=== PATIENT | female | born 1990 | race Caucasian/White ===

== ENCOUNTER 2018-03-16 10:16 | Emergency (ER) | payer OTHER, MEDICAID, SELFPAY ==
[2018-03-16 10:45] VITALS: BP 128/81; PULSE 88; RESP 20; TEMP 36.7; O2SAT 100
--- NOTE | 2018-03-16 12:09 | ED.ABDPAIN ---
HPI - Abdominal Pain <TEE Burroughs - Last Filed: 03/16/18 22:33> General Chief Complaint: Abdominal Pain Stated Complaint: throwing up this morning Time Seen by Provider: 03/16/18 12:08 History of Present Illness HPI narrative: 27-year-old female with history of ovarian cancer with right ovary removed here for pain to the left lower quadrant over the past few days. She states that she has also had nausea and vomiting. She reports that she completed chemo therapy. She reports she has had a hard time keeping down her pain medications and nausea medications. She denies having any fevers. No flank pain and no urinary symptoms. She denies any stressors or relievers of her pain. She states that she has not been having any vaginal bleeding. She does state that she has had whitish discharge. Related Data Home Medications Medication Instructions Recorded Confirmed multivitamin [Multiple Vitamins] 1 tab PO QDAY #0 09/29/17 03/21/18 vitamin B complex [B 1 tab PO QDAY #0 09/29/17 03/21/18 Complex-Vitamin B12] escitalopram oxalate [Lexapro] 5 mg PO QPM 03/16/18 03/21/18 lamotrigine [Lamictal] 200 mg PO QPM 03/16/18 03/21/18 paroxetine HCl [Paxil] 20 mg PO QHS 03/16/18 03/21/18 promethazine [Phenergan] 25 mg RC Q6HP PRN 03/16/18 03/21/18 Previous Rx's Medication Instructions Recorded omeprazole 20 mg PO QDAY #30 tab 12/31/17 norethindrone ac-eth estradiol 1 tab PO Q DAY #3 pac 02/18/18 [Loestrin 1.5/30 (21)] ondansetron 4 mg disintegrating 8 mg SUBLINGUAL Q6H PRN #60 tab 03/21/18 tablet oxycodone 5 mg capsule 5 mg PO Q8H PRN #90 cap 03/21/18 promethazine 12.5 mg tablet 12.5 mg PO Q6HP PRN #30 tab 03/21/18 cephalexin 500 mg tablet 500 mg PO Q12H 7 Days #14 tab 03/23/18 lorazepam 0.5 mg tablet 0.5 mg PO Q8HP PRN #50 tab 03/23/18 Allergies Allergy/AdvReac Type Severity Reaction Status Date / Time ketorolac [From Toradol] Allergy Intermediate Verified 03/21/18 14:15 aripiprazole [From ABILIFY] Allergy Mild MOOD SWINGS Verified 03/21/18 14:15 ethinyl estradiol Allergy Mild ITCHING Verified 03/21/18 14:15 [From NUVARING] etonogestrel [From NUVARING] Allergy Mild ITCHING Verified 03/21/18 14:15 hydrocodone [HYDROCODONE] Allergy Mild ITCHING Verified 03/21/18 14:15 tramadol [TRAMADOL] Allergy Mild ITCHING Verified 03/21/18 14:15 Review of Systems <TEE Burroughs - Last Filed: 03/16/18 22:33> Constitutional Reports system reviewed and no additional complaints, except as docu Eyes Reports system reviewed and no additional complaints, except as docu ENT Ears, Nose, Mouth, and Throat: Reports system reviewed and no additional complaints, except as docu Cardiovascular Denies chest pain and Denies dyspnea Respiratory Denies dyspnea Gastrointestinal Gastrointestinal: Reports abdominal pain Genitourinary Denies urinary frequency and Denies flank pain Musculoskeletal Reports system reviewed and no additional complaints, except as docu Integumentary/Breasts Reports system reviewed and no additional complaints, except as docu Neurologic Reports system reviewed and no additional complaints, except as docu Exam <TEE Burroughs - Last Filed: 03/16/18 22:33> Const General: well developed and No acute distress Orientation: alert, awake and oriented x3 HENMT Head: normocephalic and atraumatic Eyes Pupils: PERRL EOM: EOM intact bilaterally Resp Effort & Inspection: normal respiratory effort and no use of accessory muscles Auscultation: clear to auscultation bilaterally Cardio Rate: regular rate Rhythm: regular rhythm Heart Sounds: S1 normal, S2 normal, no click, no gallops, no murmurs and no rubs GI Inspection: non-distended Palpation: soft, No hepatomegaly, No hernia, No mass, No pulsatile mass and tender Auscultation: normal bowel sounds General: No CVA tenderness External Female Exam: external appearance normal and normal appearance of the urethra Speculum Exam - Vagina: normal appearance of the vagina, normal vaginal discharge, No vaginal bleeding and nontender Speculum Exam - Cervix: normal appearance of the cervix, normal vervical discharge and nontender Bimanual Exam- Vagina & Uterus: normal bimanual exam, normal vaginal palpation and No cervical tenderness Bimanual Exam- Adnexa, other: normal adnexae OB/External & Speculum: No vaginal bleeding Skin General: dry skin and warm Course <TEE Burroughs - Last Filed: 03/16/18 22:33> Orders Ordered: Discontinued Medications Hydromorphone HCl (Dilaudid) 0.5 mg IV NOW ONE Stop: 03/16/18 14:55 Last Admin: 03/16/18 15:00 Dose: 0.5 mg Hydromorphone HCl (Dilaudid) 0.5 mg IV NOW ONE Stop: 03/16/18 16:11 Last Admin: 03/16/18 16:18 Dose: 0.5 mg Hydromorphone HCl (Dilaudid) 0.5 mg IV NOW ONE Stop: 03/16/18 17:19 Last Admin: 03/16/18 17:38 Dose: 0.5 mg Sodium Chloride (Normal Saline 0.9%) 1,000 mls @ 1,000 mls/hr IV BOLUS ONE Stop: 03/16/18 14:03 Last Infusion: 03/16/18 15:56 Dose: 0 mls/hr Admin: 03/16/18 14:38 Dose: 1,000 mls/hr Morphine Sulfate (Morphine) 4 mg IV NOW ONE Stop: 03/16/18 13:05 Last Admin: 03/16/18 14:01 Dose: 4 mg Ondansetron HCl (Zofran) 4 mg IV NOW ONE Stop: 03/16/18 13:05 Last Admin: 03/16/18 13:58 Dose: 4 mg Ondansetron HCl (Zofran) 4 mg IV NOW ONE Stop: 03/16/18 14:55 Last Admin: 03/16/18 15:00 Dose: 4 mg Last Vital Signs Temp 97.9 F 03/16/18 13:22 Pulse 77 03/16/18 17:47 Resp 18 03/16/18 17:47 BP 128/82 H 03/16/18 17:47 Pulse Ox 100 03/16/18 17:47 <Gabriele Verde MD - Last Filed: 03/25/18 04:59> Orders Ordered: Discontinued Medications Hydromorphone HCl (Dilaudid) 0.5 mg IV NOW ONE Stop: 03/16/18 14:55 Last Admin: 03/16/18 15:00 Dose: 0.5 mg Hydromorphone HCl (Dilaudid) 0.5 mg IV NOW ONE Stop: 03/16/18 16:11 Last Admin: 03/16/18 16:18 Dose: 0.5 mg Hydromorphone HCl (Dilaudid) 0.5 mg IV NOW ONE Stop: 03/16/18 17:19 Last Admin: 03/16/18 17:38 Dose: 0.5 mg Sodium Chloride (Normal Saline 0.9%) 1,000 mls @ 1,000 mls/hr IV BOLUS ONE Stop: 03/16/18 14:03 Last Infusion: 03/16/18 15:56 Dose: 0 mls/hr Admin: 03/16/18 14:38 Dose: 1,000 mls/hr Morphine Sulfate (Morphine) 4 mg IV NOW ONE Stop: 03/16/18 13:05 Last Admin: 03/16/18 14:01 Dose: 4 mg Ondansetron HCl (Zofran) 4 mg IV NOW ONE Stop: 03/16/18 13:05 Last Admin: 03/16/18 13:58 Dose: 4 mg Ondansetron HCl (Zofran) 4 mg IV NOW ONE Stop: 03/16/18 14:55 Last Admin: 03/16/18 15:00 Dose: 4 mg Last Vital Signs Temp 97.9 F 03/16/18 13:22 Pulse 77 03/16/18 17:47 Resp 18 03/16/18 17:47 BP 128/82 H 03/16/18 17:47 Pulse Ox 100 03/16/18 17:47 MDM - Abdominal Pain <TEE Burroughs - Last Filed: 03/16/18 22:33> MDM Narrative Medical decision making narrative: CBC and Chem panel were obtained were unremarkable. Lipase was negative. Urinalysis was negative for UTI and . Abdominal CT was obtained and shows findings consistent with a ruptured left ovarian cyst that could be consistent with her pain. Wet prep was obtained and was unremarkable. GC chlamydia is pending vaginal cultures pending. Small amount of Percocet as prescribed for pain. And Zofran for nausea. She is encouraged to follow up with OBGYN. Return emergency room for any worsening symptoms Lab Data Result diagrams: 03/16/18 13:20 03/16/18 13:20 Lab Results 03/16/18 03/16/18 03/16/18 Range/Units 13:20 13:20 15:15 WBC 8.0 (4.5-11.0) X10^3/uL RBC 4.39 (4.0-5.2) X10^6/uL Hgb 12.6 (12.0-16.0) g/dL Hct 37.2 (36-46) % MCV 84.6 (80-100) fL MCH 28.6 (26-34) PG MCHC 33.8 (30-36) % RDW 13.4 (11.6-14.8) % Plt Count 323 (150-400) X10^3/uL Neut % (Auto) 51.2 (50-75) % Lymph % (Auto) 38.0 (25-40) % Coffee % (Auto) 9.2 (3-14) % Eos % (Auto) 1.2 L (2-4) % Baso % (Auto) 0.4 (0-2) % Neut # (Auto) 4100 (8590-9933) /uL Sodium 140 (137-145) mmol/L Potassium 4.3 (3.4-5.1) mmol/L Chloride 101.0 (98-107) mmol/L Carbon Dioxide 25.0 (22-32) mmol/L BUN 18.0 H (7-17) mg/dL Creatinine 0.60 (0.52-1.04) mg/dL Estimated GFR > 60.0 (>60) mL/min BUN/Creatinine Ratio 30.0 H (6-22) Glucose 90 (70-100) mg/dL Calcium 9.6 (8.4-10.2) mg/dL Total Bilirubin 0.3 (0.2-1.3) mg/dL AST 27 (14-36) IU/L ALT 29 (9-52) IU/L Alkaline Phosphatase 74 (38-126) U/L Total Protein 8.1 (6.3-8.2) g/dL Albumin 4.8 (3.5-5.0) g/dL Globulin 3.3 (1.7-4.1) g/dL Albumin/Globulin Ratio 1.5 (1.0-2.8) Lipase 77 (23-300) U/L C.trachomatis RNA (TMA) Not detected (Not detected) N.gonorrhoeae RNA (TMA) Not detected (Not detected) Imaging Data CT scan - abdomen: Radiologist's impression: PROCEDURE: CT ABDOMEN PELVIS W CON INDICATIONS: Left lower quadrant/pelvic pain TECHNIQUE: After the administration of oral and intravenous contrast, 5 mm thick sections acquired from the diaphragms to the symphysis. 5 mm thick coronal and sagittal reformats were performed. For radiation dose reduction, the following was used: automated exposure control, adjustment of mA and/or kV according to patient size. COMPARISON: [facility], CT, ABDOMEN/PELVIS WITH CONTRAST, 08/24/2017, 21:31. [facility], CT, ABDOMEN/PELVIS WITH CONTRAST, 07/19/2017, 20:15. [facility], CT, ABDOMEN/PELVIS WITH CONTRAST, 06/16/2017, 20:34. FINDINGS: Image quality: Excellent. ABDOMEN: Lung bases: Lung bases are clear. Heart size is normal. Solid organs: Liver is normal in size and enhancement. Gallbladder contains gallstones.. Biliary system is non-dilated. Pancreas enhances normally. Spleen is normal in size and enhancement. No adrenal nodules. Kidneys are normal in size and enhancement, without hydronephrosis. Peritoneum and bowel: Stomach, small bowel, and colon loops are normal in caliber and wall thickness. No free fluid or air. No loculated fluid collections are identified. The appendix is well-visualized and normal. Moderate residual stool is seen within the proximal colon. Nodes and vessels: No retroperitoneal or mesenteric adenopathy. Aorta and inferior vena cava are normal in caliber. Miscellaneous: There is a small fat containing periumbilical hernia. PELVIS: Genitourinary: Bladder wall thickness is normal. The uterus and ovaries are not enlarged. There is a peripherally enhancing 1.7 cm left ovarian cyst, which may represent a collapsing hemorrhagic ovarian cyst, in the correct clinical setting. Miscellaneous: No inguinal hernias or adenopathy. No free fluid or loculated fluid collection is evident. Bones: No suspicious bony lesions. No vertebral body compression fractures. Age-appropriate degenerative changes of the spine are present. IMPRESSION: 1. No definite acute abnormality within the abdomen or pelvis. 2. Possible collapsing left ovarian cyst may be a source for the patient's pain. 3. Normal appendix. 4. Moderate residual stool within the colon may represent constipation. No bowel obstruction. 5. Cholelithiasis. <Gabriele Verde MD - Last Filed: 03/25/18 04:59> Lab Data Lab Results 03/16/18 03/16/18 03/16/18 Range/Units 13:20 13:20 15:15 WBC 8.0 (4.5-11.0) X10^3/uL RBC 4.39 (4.0-5.2) X10^6/uL Hgb 12.6 (12.0-16.0) g/dL Hct 37.2 (36-46) % MCV 84.6 (80-100) fL MCH 28.6 (26-34) PG MCHC 33.8 (30-36) % RDW 13.4 (11.6-14.8) % Plt Count 323 (150-400) X10^3/uL Neut % (Auto) 51.2 (50-75) % Lymph % (Auto) 38.0 (25-40) % Coffee % (Auto) 9.2 (3-14) % Eos % (Auto) 1.2 L (2-4) % Baso % (Auto) 0.4 (0-2) % Neut # (Auto) 4100 (5729-9756) /uL Sodium 140 (137-145) mmol/L Potassium 4.3 (3.4-5.1) mmol/L Chloride 101.0 (98-107) mmol/L Carbon Dioxide 25.0 (22-32) mmol/L BUN 18.0 H (7-17) mg/dL Creatinine 0.60 (0.52-1.04) mg/dL Estimated GFR > 60.0 (>60) mL/min BUN/Creatinine Ratio 30.0 H (6-22) Glucose 90 (70-100) mg/dL Calcium 9.6 (8.4-10.2) mg/dL Total Bilirubin 0.3 (0.2-1.3) mg/dL AST 27 (14-36) IU/L ALT 29 (9-52) IU/L Alkaline Phosphatase 74 (38-126) U/L Total Protein 8.1 (6.3-8.2) g/dL Albumin 4.8 (3.5-5.0) g/dL Globulin 3.3 (1.7-4.1) g/dL Albumin/Globulin Ratio 1.5 (1.0-2.8) Lipase 77 (23-300) U/L C.trachomatis RNA (TMA) Not detected (Not detected) N.gonorrhoeae RNA (TMA) Not detected (Not detected) <Gabriele Verde MD - Last Filed: 03/25/18 04:59> Attestation: The PA/HOP SEPARATOR functioned independently for the care of this pt, I was available, but not asked to participate in care. I am unable to determine appropriateness of management without personally examining the pt. Discharge Plan Departure Patient Disposition: Home, Self-Care Clinical Impression: Cyst of left ovary Discharge Date/Time: 03/16/18 18:02 Interventions: ED Discharge Assessment Last Done: 03/16/18 18:01 Instructions: DI for Ovarian Cyst Activity Restrictions/Additional Instructions: Laboratory results were unremarkable today. CT of the abdomen shows that you had an ovarian cyst to the left side which could be causing your discomfort. Small amount of Percocet as prescribed for pain. Zofran as prescribed for nausea use as directed. Slowly advance diet as tolerated. 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 Return emergency room for worsening symptoms Prescriptions: No Action multivitamin [Multiple Vitamins] 1 EACH tablet 1 tab PO QDAY Qty: 0 RF: 0 vitamin B complex [B Complex-Vitamin B12] 1 EACH tablet 1 tab PO QDAY Qty: 0 RF: 0 omeprazole 20 MG tablet,delayed release (DR/EC) 20 mg PO QDAY Qty: 30 RF: 3 norethindrone ac-eth estradiol [Loestrin 1.5/30 (21)] 1.5 MG/30 MCG tablet 1 tab PO Q DAY Qty: 3 RF: 4 lorazepam [Ativan] 0.5 mg tablet 0.5 mg PO Q8HP PRN (Reason: Anxiety) Qty: 50 RF: 0 cephalexin 500 mg tablet 500 mg PO Q12H 7 Days Qty: 14 RF: 0 promethazine 12.5 mg tablet 12.5 mg PO Q6HP PRN (Reason: Nausea And Vomiting) Qty: 30 RF: 2 ondansetron 4 mg tablet,disintegrating 8 mg Sublingual Q6H PRN (Reason: Nausea) Qty: 60 RF: 2 oxycodone 5 mg capsule 5 mg PO Q8H PRN (Reason: pain) Qty: 90 RF: 0 lamotrigine [Lamictal] 200 MG tablet 200 mg PO QPM RF: 0 escitalopram oxalate [Lexapro] 10 MG tablet 5 mg PO QPM RF: 0 promethazine [Phenergan] 25 MG suppository 25 mg RC Q6HP PRN (Reason: Nausea And Vomiting) RF: 0 paroxetine HCl [Paxil] 20 MG tablet 20 mg PO QHS RF: 0 Referrals: Justa Hamilton MD [Primary Care Provider] -
--- NOTE | 2018-03-16 13:06 | DI.CT.S_ITS ---
PROCEDURE: CT ABDOMEN PELVIS W CON INDICATIONS: Left lower quadrant/pelvic pain TECHNIQUE: After the administration of oral and intravenous contrast, 5 mm thick sections acquired from the diaphragms to the symphysis. 5 mm thick coronal and sagittal reformats were performed. For radiation dose reduction, the following was used: automated exposure control, adjustment of mA and/or kV according to patient size. COMPARISON: [facility], CT, ABDOMEN/PELVIS WITH CONTRAST, 08/24/2017, 21:31. [facility], CT, ABDOMEN/PELVIS WITH CONTRAST, 07/19/2017, 20:15. [facility], CT, ABDOMEN/PELVIS WITH CONTRAST, 06/16/2017, 20:34. FINDINGS: Image quality: Excellent. ABDOMEN: Lung bases: Lung bases are clear. Heart size is normal. Solid organs: Liver is normal in size and enhancement. Gallbladder contains gallstones.. Biliary system is non-dilated. Pancreas enhances normally. Spleen is normal in size and enhancement. No adrenal nodules. Kidneys are normal in size and enhancement, without hydronephrosis. Peritoneum and bowel: Stomach, small bowel, and colon loops are normal in caliber and wall thickness. No free fluid or air. No loculated fluid collections are identified. The appendix is well-visualized and normal. Moderate residual stool is seen within the proximal colon. Nodes and vessels: No retroperitoneal or mesenteric adenopathy. Aorta and inferior vena cava are normal in caliber. Miscellaneous: There is a small fat containing periumbilical hernia. PELVIS: Genitourinary: Bladder wall thickness is normal. The uterus and ovaries are not enlarged. There is a peripherally enhancing 1.7 cm left ovarian cyst, which may represent a collapsing hemorrhagic ovarian cyst, in the correct clinical setting. Miscellaneous: No inguinal hernias or adenopathy. No free fluid or loculated fluid collection is evident. Bones: No suspicious bony lesions. No vertebral body compression fractures. Age-appropriate degenerative changes of the spine are present. IMPRESSION: 1. No definite acute abnormality within the abdomen or pelvis. 2. Possible collapsing left ovarian cyst may be a source for the patient's pain. 3. Normal appendix. 4. Moderate residual stool within the colon may represent constipation. No bowel obstruction. 5. Cholelithiasis. Dictated by: Frank Perales M.D. on 03/16/2018 at 13:54 Approved by: Frank Perales M.D. on 03/16/2018 at 13:57
[2018-03-16 13:22] VITALS: BP 127/79; PULSE 72; RESP 18; TEMP 36.6; O2SAT 100
[2018-03-16 13:30] LABS: Add Manual Diff / Slide Review NO; Basophils Percent Auto 0.4 % (0-2); Eosinophils Percent Auto 1.2 % (2-4); Hematocrit 37.2 % (36-46); Hemoglobin 12.6 g/dL (12.0-16.0); Mean Corpuscular HGB Conc 33.8 % (30-36); Mean Corpuscular Hemoglobin 28.6 PG (26-34); Mean Corpuscular Volume 84.6 fL (80-100); Monocytes Percent Auto 9.2 % (3-14); Neutrophils Absolute Auto 4100 /uL (3000-5900); Neutrophils Percent Auto 51.2 % (50-75); Platelet Count 323 X10^3/uL (150-400); Red Blood Cell Count 4.39 X10^6/uL (4.0-5.2); Red Cell Distribution Width 13.4 % (11.6-14.8)
[2018-03-16 13:39] LABS: Alanine Aminotransferase 29 IU/L (9-52); Albumin 4.8 g/dL (3.5-5.0); Albumin Globulin Ratio 1.5 (1.0-2.8); Alkaline Phosphatase 74 U/L (38-126); Aspartate Aminotransferase 27 IU/L (14-36); Bilirubin Total 0.3 mg/dL (0.2-1.3); Calcium 9.6 mg/dL (8.4-10.2); Estimated Glomerular Filt Rate > 60.0 mL/min (>60); Globulin 3.3 g/dL (1.7-4.1); Glucose 90 mg/dL (70-100); HEMOLYSIS 18 (0-50); Lipase 77 U/L (23-300); Potassium 4.3 mmol/L (3.4-5.1); Sodium 140 mmol/L (137-145); Total Protein 8.1 g/dL (6.3-8.2)
[2018-03-16] MEDS: ONDANSETRON 4 MG/2 ML INJ IV ×2 (13:58→15:00)
[2018-03-16] MEDS: MORPHINE 4 MG/ML VIAL IV (14:01)
[2018-03-16 14:28] VITALS: BP 138/87; PULSE 85; RESP 16; O2SAT 100
[2018-03-16] MEDS: SODIUM CHLORIDE 0.9% 1,000 ML 1000 ML IV (14:38)
--- NOTE | 2018-03-16 14:54 | PC.NURSE ---
pt requesting more pain medication, states, morphine doesnt help with her pain relief, made her nausea, despite , pt recieved zofran before morhpine, states, dilaudid is what medicatin usually given for me for pain. provider javier made aware.
--- NOTE | 2018-03-16 14:58 | PC.NURSE ---
before pelvic exam, pt requested to recieved pain medications first.
[2018-03-16] MEDS: HYDROMORPHONE 0.5 MG INJ IV ×3 (15:00→17:38)
--- NOTE | 2018-03-16 15:20 | PC.NURSE ---
stand by with provider pelroy with pelvic exam. obtained cultures and sent to lab. then pt requesting more pain medications.
[2018-03-16 16:03] VITALS: BP 113/54; PULSE 83; RESP 17; O2SAT 100
--- NOTE | 2018-03-16 16:12 | PC.NURSE ---
requesting anti anxiety medication, takes lorazepam, not xanax.
--- NOTE | 2018-03-16 17:09 | PC.NURSE ---
pt requesting lidocaine patch for her abdominal. awaiting for pending lab result. provider made aware.
[2018-03-16 17:47] VITALS: BP 128/82; PULSE 77; RESP 18; O2SAT 100
--- NOTE | 2018-03-16 17:54 | PC.NURSE ---
pt states, friend will give her a ride home.
[2018-03-19 11:22] LABS: C.trachomatis RNA Not detected (Not detected); N.gonorrhoeae RNA Not detected (Not detected)
== END 2018-03-16 18:02 | disposition home or self-care (01) ==
PROVIDERS: Emergency Provider Nurse Practitioner Family; Family Provider Family Medicine; PCP Family Medicine
DX: N83.209 Unspecified ovarian cyst, unspecified side (principal)
CPT/HCPCS: 36591; 74177; 80053; 81003; 81025; 83690; 85025; 87070; 87205; 87210; 87491; 87591; 96374; 96375; 96376; 99284; J1170; J2270; J2405; Q9967

== ENCOUNTER → 2018-03-17 08:34 | Day surgery (SDC) | payer OTHER, MEDICAID, SELFPAY ==
[2018-03-16 13:22] VITALS: TEMP 36.6
== END ==
PROVIDERS: Family Provider Family Medicine; PCP Family Medicine; Visit Provider Specialist

== ENCOUNTER → 2018-03-21 15:01 | Outpatient (CLI) | payer OTHER, MEDICAID, SELFPAY | PROVIDERS: Family Provider Family Medicine; PCP Family Medicine; Visit Provider Family Medicine | DX: T82.838A Hemorrhage due to vascular prosthetic devices, implants and grafts, initial encounter (principal) | CPT/HCPCS: 87070; 87075; 87077; 87186; 87205 ==

== ENCOUNTER → 2018-03-25 09:21 | Outpatient (CLI) | payer OTHER, MEDICAID, SELFPAY ==
[2018-03-25 10:17] LABS: Add Manual Diff / Slide Review NO; Basophils Percent Auto 0.3 % (0-2); Eosinophils Percent Auto 2.8 % (2-4); Hematocrit 33.7 % (36-46); Hemoglobin 11.7 g/dL (12.0-16.0); Lymphocytes Percent Auto 38.6 % (25-40); Mean Corpuscular HGB Conc 34.7 % (30-36); Mean Corpuscular Hemoglobin 28.6 PG (26-34); Mean Corpuscular Volume 82.6 fL (80-100); Monocytes Percent Auto 8.2 % (3-14); Neutrophils Absolute Auto 3800 /uL (3000-5900); Neutrophils Percent Auto 50.1 % (50-75); Platelet Count 293 X10^3/uL (150-400); Red Blood Cell Count 4.08 X10^6/uL (4.0-5.2); Red Cell Distribution Width 13.1 % (11.6-14.8); White Blood Cell Count 7.6 X10^3/uL (4.5-11.0)
[2018-03-25 11:07] LABS: Hepatitis B Surface Antigen NEGATIVE s/c (NEGATIVE)
[2018-03-25 11:25] LABS: HIV 1 and 2 Antibody NEGATIVE (NEGATIVE); Hep C Virus Ab w/Reflex Quant NEGATIVE s/c (NEGATIVE)
[2018-03-29 15:49] LABS: HSV 2 IGG AB < 0.90 index (< 0.90); HSV1IGG < 0.90 index (< 0.90)
[2018-03-29 16:45] LABS: HCG Quantitative /Beta subunit 9265.1 mIU/mL
[2018-03-29 16:55] LABS: Inhibin B < 10 pg/mL
[2018-03-31 12:51] LABS: Rapid Plasma Reagin NON-REACTIVE
== END ==
PROVIDERS: PCP Family Medicine
DX: Z34.90 Encounter for supervision of normal pregnancy, unspecified, unspecified trimester (principal); D39.10 Neoplasm of uncertain behavior of unspecified ovary
CPT/HCPCS: 36415; 80055; 82397; 84702; 86850; 86900; 86901

== ENCOUNTER 2018-04-04 10:28 | Emergency (ER) | payer OTHER, MEDICAID, SELFPAY ==
[2018-04-04 10:34] VITALS: BP 107/70; PULSE 76; RESP 18; TEMP 36.6; O2SAT 100
[2018-04-04 11:23] LABS: Add Manual Diff / Slide Review NO; Basophils Percent Auto 0.5 % (0-2); Eosinophils Percent Auto 1.9 % (2-4); Hematocrit 34.5 % (36-46); Hemoglobin 11.6 g/dL (12.0-16.0); Lymphocytes Percent Auto 29.7 % (25-40); Mean Corpuscular HGB Conc 33.8 % (30-36); Mean Corpuscular Hemoglobin 27.8 PG (26-34); Mean Corpuscular Volume 82.4 fL (80-100); Neutrophils Absolute Auto 4600 /uL (3000-5900); Neutrophils Percent Auto 58.9 % (50-75); Platelet Count 274 X10^3/uL (150-400); Red Blood Cell Count 4.18 X10^6/uL (4.0-5.2); Red Cell Distribution Width 13.7 % (11.6-14.8); White Blood Cell Count 7.8 X10^3/uL (4.5-11.0)
[2018-04-04] MEDS: SODIUM CHLORIDE 0.9% 1,000 ML 1000 ML IV ×2 (11:24→12:58)
[2018-04-04 11:37] LABS: Alanine Aminotransferase 34 IU/L (9-52); Albumin 4.3 g/dL (3.5-5.0); Albumin Globulin Ratio 1.3 (1.0-2.8); Alkaline Phosphatase 64 U/L (38-126); Aspartate Aminotransferase 25 IU/L (14-36); Bilirubin Total 0.5 mg/dL (0.2-1.3); Calcium 9.3 mg/dL (8.4-10.2); Estimated Glomerular Filt Rate > 60.0 mL/min (>60); Globulin 3.2 g/dL (1.7-4.1); Glucose 80 mg/dL (70-100); HEMOLYSIS < 15 (0-50); Potassium 4.2 mmol/L (3.4-5.1); Sodium 138 mmol/L (137-145); Total Protein 7.5 g/dL (6.3-8.2)
[2018-04-04 12:21] VITALS: BP 93/41; PULSE 78; RESP 17; O2SAT 98
[2018-04-04] MEDS: METOCLOPRAMIDE 10 MG/2 ML INJ 5 MG IV (12:47)
--- NOTE | 2018-04-04 12:47 | DI.US.S_ITS ---
PROCEDURE: US OB <= 14 WEEKS FETUS INDICATIONS: CRAMPING; 8 WEEKS WITH HISTORY OVARIAN CANCER OUTSIDE/PRIOR DATING DATA: Last menstrual period (LMP): Unsure. First dating scan (date and location): 04/04/18. Estimated date of delivery (YAHAIRA) from first dating scan: 11/20/18. TECHNIQUE: Real-time scanning was performed of the fetus and maternal pelvic organs, with image documentation. Endovaginal scanning was also performed to better visualize the fetus and maternal ovaries. COMPARISON: None. FINDINGS: Embryo: There is a single intrauterine with a gestational sac, yolk sac, pole visualized. There is a heart rate of 132 beats per minute. The crown-rump length measures approximately 1 cm corresponding to a gestational age of 7 weeks 1 day. No casimiro-gestational hematoma identified. Measurement variability in dating: +/- 4 weeks by LMP, +/- 7 days by mean sac diameter (use before 6 weeks gestation if crown-rump length not able to be measured), +/- 5 days by crown-rump length (up to 8 weeks 6 days gestation), +/- 7 days by crown-rump length (up to 13 weeks 6 days gestation). Maternal organs: The right ovary is surgically absent. The left ovary measures 2.2 x 2.8 x 2.2 cm. There is a thickwalled structure in the left ovary with an internal fluid debris level measuring 2.1 x 1.1 x 1.3 cm. There is peripheral vascularity on color Doppler interrogation. The findings are compatible with a corpus luteal cyst. Limited images through the kidneys demonstrate no hydronephrosis. IMPRESSION: 1. Single living intrauterine with calculated gestational age of 7 weeks 1 day corresponding to an estimated delivery date of 11/20/18. 2. Probable corpus luteal cyst in the left ovary. Dictated by: Frankie Costa M.D. on 04/04/2018 at 15:01 Approved by: Frankie Costa M.D. on 04/04/2018 at 15:04
[2018-04-04] MEDS: ACETAMINOPHEN 325 MG TABLET 975 MG PO (12:51)
[2018-04-04 13:06] VITALS: BP 90/52; PULSE 73; RESP 18; O2SAT 100
--- NOTE | 2018-04-04 13:52 | ED_ITS ---
HPI - Nausea/Vomiting/Diarrhea General Chief complaint: Nausea/Vomiting/Diarrhea Stated complaint: 7 WEEKS CANNOT STOP THROWING UP,DIZZY Time Seen by Provider: 04/04/18 11:30 Source: patient Mode of arrival: ambulatory History of Present Illness HPI Narrative: Patient is a 27-year-old female who presents with nausea and vomiting. She is about 8 weeks . She also has a history of ovarian cancer. She finished chemotherapy in November she did not think it was possible to get . She took 8 of Zofran prior to arrival. No longer vomiting but dry heaving. She has some lower abdominal cramping as well. She has felt that her urine has smelled strong but denies any fever or back pain. She denies any vaginal bleeding. Of 0 3 started today. MD complaint: nausea, vomiting and abdominal pain Related Data Home Medications Medication Instructions Recorded Confirmed vitamin B complex [B 1 tab PO QDAY #0 09/29/17 04/04/18 Complex-Vitamin B12] lamotrigine [Lamictal] 200 mg PO QPM 03/16/18 04/04/18 promethazine [Phenergan] 25 mg RC Q6HP PRN 03/16/18 04/04/18 Previous Rx's Medication Instructions Recorded omeprazole 20 mg PO QDAY #30 tab 12/31/17 ondansetron 4 mg disintegrating 8 mg SUBLINGUAL Q6H PRN #60 tab 03/21/18 tablet oxycodone 5 mg capsule 5 mg PO Q8H PRN #90 cap 03/21/18 promethazine 12.5 mg tablet 12.5 mg PO Q6HP PRN #30 tab 03/21/18 lorazepam 0.5 mg tablet 0.5 mg PO Q8HP PRN #50 tab 03/23/18 metoclopramide HCl [Reglan] 10 mg PO Q6H PRN #14 tab 04/04/18 ondansetron [Zofran ODT] 4 mg PO Q6H PRN #10 tab 04/04/18 Allergies Allergy/AdvReac Type Severity Reaction Status Date / Time ketorolac [From Toradol] Allergy Intermediate Verified 03/25/18 08:36 aripiprazole [From ABILIFY] Allergy Mild MOOD SWINGS Verified 03/25/18 08:36 ethinyl estradiol Allergy Mild ITCHING Verified 03/25/18 08:36 [From NUVARING] etonogestrel [From NUVARING] Allergy Mild ITCHING Verified 03/25/18 08:36 hydrocodone [HYDROCODONE] Allergy Mild ITCHING Verified 03/25/18 08:36 tramadol [TRAMADOL] Allergy Mild ITCHING Verified 03/25/18 08:36 morphine AdvReac Intermediate Headache Verified 04/04/18 10:38 Review of Systems Review of Systems All systems reviewed & are unremarkable except as noted in HPI and below Constitutional Denies chills, Denies fever(s), Denies lethargy and Denies weakness Cardiovascular Denies dyspnea and Denies dyspnea on exertion Respiratory Denies cough, Denies dyspnea, Denies dyspnea on exertion and Denies wheezing Gastrointestinal Gastrointestinal: Reports abdominal pain, Reports nausea and Reports vomiting Neurologic Denies weakness Allergic/Immunologic Denies wheezing REPLACED BY [facility] Medical History Bipolar 1 disorder (Acute) Depression (Acute) Distal paresthesia (Acute) Ear infection (Acute) History of wisdom tooth extraction (Acute) Menometrorrhagia (Acute) Migraines (Acute) PTSD (post-traumatic stress disorder) (Acute) Port-a-cath in place (Acute) Urinary leakage (Acute) Surgical History Hx of tonsillectomy (Acute) Hx of unilateral salpingectomy (Acute) Social History Smoking Status: Former smoker Exam Initial Vital Signs Initial Vital Signs: Vital Signs Temperature 97.9 F 04/04/18 10:34 Pulse Rate 76 04/04/18 10:34 Respiratory Rate 18 04/04/18 10:34 Blood Pressure 107/70 04/04/18 10:34 Pulse Oximetry 100 04/04/18 10:34 Const General: cooperative and well developed Nutritional Appearance: well nourished Orientation: alert, awake, oriented x3 and not confused Resp Effort & Inspection: normal respiratory effort, able to speak in complete sentences, no respiratory distress and no use of accessory muscles Auscultation: clear to auscultation bilaterally, no rales, no rhonchi and no wheezes Cardio Rate: regular rate Rhythm: regular rhythm Heart Sounds: no click, no gallops, no murmurs and no rubs Pulses: normal peripheral pulses GI Inspection: non-distended Palpation: soft, no hepatosplenomegaly, No guarding, No pulsatile mass and No tender Auscultation: normal bowel sounds General: No CVA tenderness Skin General: no rashes or lesions noted, No jaundice and No petechiae Neuro General: alert, oriented x3, gait normal and no focal motor deficits Speech: speech normal Course Orders Ordered: ED Orders 04/04/18 11:15 Complete Blood Count AUTO DIFF Stat Comprehensive Metabolic Panel Stat 04/04/18 12:47 US OB <= 14 weeks fetus Stat Discontinued Medications Acetaminophen (Tylenol) 975 mg PO NOW ONE Stop: 04/04/18 12:48 Last Admin: 04/04/18 12:51 Dose: 975 mg Sodium Chloride (Normal Saline 0.9%) 1,000 mls @ 1,000 mls/hr IV BOLUS ONE Stop: 04/04/18 12:00 Last Infusion: 04/04/18 12:49 Dose: 0 mls/hr Admin: 04/04/18 11:24 Dose: 1,000 mls/hr Sodium Chloride (Normal Saline 0.9%) 1,000 mls @ 1,000 mls/hr IV BOLUS ONE Stop: 04/04/18 13:55 Last Infusion: 04/04/18 14:25 Dose: 0 mls/hr Admin: 04/04/18 12:58 Dose: 1,000 mls/hr Metoclopramide HCl (Reglan) 5 mg IV NOW ONE Stop: 04/04/18 12:38 Last Admin: 04/04/18 12:47 Dose: 5 mg Ondansetron HCl (Zofran) 4 mg IV NOW ONE Stop: 04/04/18 11:02 Last Admin: 04/04/18 11:24 Dose: Vital Signs - 8 hr 04/04/18 12:21 04/04/18 13:06 04/04/18 14:25 Temperature 98.2 F Pulse Rate 78 73 62 Respiratory Rate 17 18 16 Blood Pressure 96/44 L Blood Pressure [Right Arm] 93/41 L 90/52 L Pulse Oximetry 98 100 99 MDM - Nausea/Vomiting/Diarrhea Lab Data Attestation: I reviewed the patient's lab results. Result diagrams: 04/04/18 11:15 04/04/18 11:15 Lab Results 04/04/18 04/04/18 Range/Units 11:15 11:15 WBC 7.8 (4.5-11.0) X10^3/uL RBC 4.18 (4.0-5.2) X10^6/uL Hgb 11.6 L (12.0-16.0) g/dL Hct 34.5 L (36-46) % MCV 82.4 (80-100) fL MCH 27.8 (26-34) PG MCHC 33.8 (30-36) % RDW 13.7 (11.6-14.8) % Plt Count 274 (150-400) X10^3/uL Neut % (Auto) 58.9 (50-75) % Lymph % (Auto) 29.7 (25-40) % [place] % (Auto) 9.0 (3-14) % Eos % (Auto) 1.9 L (2-4) % Baso % (Auto) 0.5 (0-2) % Neut # (Auto) 4600 (7559-3671) /uL Sodium 138 (137-145) mmol/L Potassium 4.2 (3.4-5.1) mmol/L Chloride 98.0 (98-107) mmol/L Carbon Dioxide 26.0 (22-32) mmol/L BUN 18.0 H (7-17) mg/dL Creatinine 0.60 (0.52-1.04) mg/dL Estimated GFR > 60.0 (>60) mL/min BUN/Creatinine Ratio 30.0 H (6-22) Glucose 80 (70-100) mg/dL Calcium 9.3 (8.4-10.2) mg/dL Total Bilirubin 0.5 (0.2-1.3) mg/dL AST 25 (14-36) IU/L ALT 34 (9-52) IU/L Alkaline Phosphatase 64 (38-126) U/L Total Protein 7.5 (6.3-8.2) g/dL Albumin 4.3 (3.5-5.0) g/dL Globulin 3.2 (1.7-4.1) g/dL Albumin/Globulin Ratio 1.3 (1.0-2.8) Imaging Data Pelvic ultrasound: Radiologist's impression: maternal ovaries. COMPARISON: None. FINDINGS: Embryo: There is a single intrauterine with a gestational sac, yolk sac, pole visualized. There is a heart rate of 132 beats per minute. The crown-rump length measures approximately 1 cm corresponding to a gestational age of 7 weeks 1 day. No casimiro-gestational hematoma identified. Measurement variability in dating: +/- 4 weeks by LMP, +/- 7 days by mean sac diameter (use before 6 weeks gestation if crown-rump length not able to be measured), +/ - 5 days by crown-rump length (up to 8 weeks 6 days gestation), +/- 7 days by crown-rump length (up to 13 weeks 6 days gestation). Maternal organs: The right ovary is surgically absent. The left ovary measures 2.2 x 2.8 x 2.2 cm. There is a thickwalled structure in the left ovary with an internal fluid debris level measuring 2.1 x 1.1 x 1.3 cm. There is peripheral vascularity on color Doppler interrogation. The findings are compatible with a corpus luteal cyst. Limited images through the kidneys demonstrate no hydronephrosis. IMPRESSION: 1. Single living intrauterine with calculated gestational age of 7 weeks 1 day corresponding to an estimated delivery date of 11/20/18. 2. Probable corpus luteal cyst in the left ovary. Dictated by: Frankie Costa M.D. on 04/04/2018 at 15:01 MDM Narrative Medical decision making narrative: Patient is tolerating oral fluids. Ultrasound negative she is given Zofran and Reglan to go home with. Discharge Plan Departure Patient Disposition: Home, Self-Care Clinical Impression: Hyperemesis gravidarum Discharge Date/Time: 04/04/18 14:25 Interventions: ED Discharge Assessment Last Done: 04/04/18 14:25 Instructions: Hyperemesis Gravidarum Activity Restrictions/Additional Instructions: *You have been diagnosed with hyperemesis gravidarum *What to do: Increase fluid intake with water and Gatorade like substance *Take medications as directed -Zofran every 4-6 hours for nausea -Reglan 10 mg every 6 hr if needed for nausea or vomiting *Follow up with your primary care provider in 2-3 days *Return to ER if you should have persistent vomiting, increasing pain or vaginal bleeding any new, worsening or concerning symptoms Prescriptions: New ondansetron [Zofran ODT] 4 mg tablet,disintegrating 4 mg PO Q6H PRN (Reason: nausea and vomiting) Qty: 10 RF: 0 metoclopramide HCl [Reglan] 10 mg tablet 10 mg PO Q6H PRN (Reason: nausea and vomiting) Qty: 14 RF: 0 No Action vitamin B complex [B Complex-Vitamin B12] 1 EACH tablet 1 tab PO QDAY Qty: 0 RF: 0 omeprazole 20 MG tablet,delayed release (DR/EC) 20 mg PO QDAY Qty: 30 RF: 3 lorazepam [Ativan] 0.5 mg tablet 0.5 mg PO Q8HP PRN (Reason: Anxiety) Qty: 50 RF: 0 promethazine 12.5 mg tablet 12.5 mg PO Q6HP PRN (Reason: Nausea And Vomiting) Qty: 30 RF: 2 ondansetron 4 mg tablet,disintegrating 8 mg Sublingual Q6H PRN (Reason: Nausea) Qty: 60 RF: 2 oxycodone 5 mg capsule 5 mg PO Q8H PRN (Reason: pain) Qty: 90 RF: 0 lamotrigine [Lamictal] 200 MG tablet 200 mg PO QPM RF: 0 promethazine [Phenergan] 25 MG suppository 25 mg RC Q6HP PRN (Reason: Nausea And Vomiting) RF: 0 Referrals: Justa Hamilton MD [Primary Care Provider] -
[2018-04-04 14:25] VITALS: BP 96/44; PULSE 62; RESP 16; TEMP 36.8; O2SAT 99
== END 2018-04-04 14:25 | disposition home or self-care (01) ==
PROVIDERS: Emergency Provider Emergency Medicine; Family Provider Family Medicine; PCP Family Medicine
DX: O21.0 Mild hyperemesis gravidarum (principal); Z3A.01 Less than 8 weeks gestation of pregnancy
CPT/HCPCS: 36591; 76801; 76817; 80053; 81003; 81025; 85025; 96361; 96374; 96375; 99283; 99284; J2765

== ENCOUNTER → 2018-05-09 11:45 | Outpatient (CLI) | payer OTHER, MEDICAID, SELFPAY | PROVIDERS: PCP Family Medicine | DX: Z86.19 Personal history of other infectious and parasitic diseases (principal); Z36.0 Encounter for antenatal screening for chromosomal anomalies; Z3A.12 12 weeks gestation of pregnancy | CPT/HCPCS: 36415; 84163; 84702 ==

== ENCOUNTER → 2018-06-07 11:28 | Outpatient (CLI) | payer OTHER, MEDICAID, SELFPAY ==
[2018-06-09 11:54] LABS: Sequential Screen 2nd Trimeste SCREEN NEGATIVE
== END ==
PROVIDERS: Family Provider Family Medicine; PCP Family Medicine
DX: Z34.82 Encounter for supervision of other normal pregnancy, second trimester (principal); Z3A.16 16 weeks gestation of pregnancy
CPT/HCPCS: 36415; 86336

== ENCOUNTER → 2018-07-20 13:12 | Outpatient (CLI) | payer OTHER, MEDICAID, SELFPAY ==
--- NOTE | 2018-07-20 13:16 | DI.US.S_ITS ---
PROCEDURE: US OB >= 14 WEEKS FETUS INDICATIONS: ANATOMY OUTSIDE/PRIOR DATING DATA: Last menstrual period (LMP): Unsure. First dating scan (date and location): 04/04/18. Estimated date of delivery (YAHAIRA) from first dating scan: 11/20/18.. TECHNIQUE: Real-time scanning was performed of the fetus, with image documentation and biometric measurements. Endovaginal scanning: Not requested. COMPARISON: [facility], OB <= 14 WEEKS FETUS, 04/04/2018, 13:16. [facility], , OB >= 14 WEEKS FETUS, 07/15/2018, 8:22. FINDINGS: General: A single living intrauterine gestation is present. Presentation: Transverse. Placenta: Placental position is anterior, without previa. Amniotic fluid index: 23 cm, normal range is 5-24 cm. heart rate: 150 beats per minute. Maternal cervical canal: 4.3 cm long. biometrics: Biparietal diameter: 23 weeks 4 days Head circumference: 23 weeks 5 days Abdominal circumference: 23 weeks 5 days Femur length: 22 weeks 6 days Estimated gestational age from initial scan: 22 weeks 3 days Composite gestational age from present scan: 23 weeks 4 days Estimated weight and percentile: 589 g; 87% Measurement variability for biometric dating: +/- 7 days from 14 weeks to 15 weeks 6 days gestation, +/- 10 days from 16 weeks to 21 weeks 6 days gestation, +/- 2 weeks from 22 weeks to 27 weeks 6 days gestation, +/- 3 weeks for 28 weeks gestation or later. weight reference: 4500 g or EFW >90/95% is considered macrosomia or large for gestational age. EFW <10% is small for gestational age. EFW 5% or less is considered intra-uterine growth restriction. Anatomic survey: Neuro: Ventricles are non-dilated at less than 10 mm. Cisterna magna is normal at 3-11 mm. Cerebellum is normal in size and morphology. Nuchal skin fold: Normal at less than 6 mm between 14-21 weeks gestational age. Face: Nose and lips, facial profile are normal. Spine: No evidence for spina bifida. Heart: 4-chambered heart is present, with normal ventricular outflow tracts. Diaphragm: Diaphragm is intact. Stomach: Left-sided stomach is present. Kidneys: No hydronephrosis. Normal is less than 5 mm in 2nd trimester, less than 7 mm in 3rd trimester. Cord: 3-vessel cord has orthotopic insertion. Bladder: Normal in size. Extremities: All 4 extremities identified. IMPRESSION: 1. Interval growth upper limits of normal 2. Normal anatomic survey. 3. Amniotic fluid index near the 95th percentile. Dictated by: Gabe HITCHCOCK Interpreted: Ren Robb MD on 07/20/2018 at 14:37 Approved by: Ren Robb M.D. on 07/20/2018 at 15:19
== END ==
PROVIDERS: Family Provider Family Medicine; PCP Family Medicine
DX: Z34.92 Encounter for supervision of normal pregnancy, unspecified, second trimester (principal); Z3A.23 23 weeks gestation of pregnancy
CPT/HCPCS: 76811

== ENCOUNTER → 2018-08-17 11:52 | Outpatient (CLI) | payer OTHER, MEDICAID, SELFPAY ==
[2018-08-17 13:53] LABS: Hematocrit 30.1 % (36-46); Hemoglobin 9.8 g/dL (12.0-16.0)
[2018-08-17 14:34] LABS: GTT (PREG) 1 Hour PP 50gm Dose 111 mg/dL (76-139)
[2018-08-19 14:37] LABS: Inhibin B < 10 pg/mL
== END ==
PROVIDERS: Family Provider Family Medicine; PCP Family Medicine
DX: O9A.112 Malignant neoplasm complicating pregnancy, second trimester (principal); C56.9 Malignant neoplasm of unspecified ovary; Z3A.25 25 weeks gestation of pregnancy
CPT/HCPCS: 36415; 82397; 82950; 85014; 85018

== ENCOUNTER → 2018-10-11 15:12 | Outpatient (CLI) | payer OTHER, MEDICAID, SELFPAY ==
[2018-10-13 15:10] LABS: Inhibin B < 10 pg/mL
== END ==
PROVIDERS: Family Provider Family Medicine; PCP Family Medicine
DX: C56.9 Malignant neoplasm of unspecified ovary (principal); Z34.93 Encounter for supervision of normal pregnancy, unspecified, third trimester
CPT/HCPCS: 36415; 82397; 87077; 87086

== ENCOUNTER → 2018-10-27 09:26 | Outpatient (CLI) | payer OTHER, MEDICAID, SELFPAY ==
[2018-10-27 09:54] LABS: Add Manual Diff / Slide Review NO; Basophils Percent Auto 0.2 % (0-2); Eosinophils Percent Auto 1.1 % (2-4); Hematocrit 32.7 % (36-46); Hemoglobin 10.8 g/dL (12.0-16.0); Lymphocytes Percent Auto 27.7 % (25-40); Mean Corpuscular Hemoglobin 25.8 PG (26-34); Mean Corpuscular Volume 78.4 fL (80-100); Monocytes Percent Auto 8.4 % (3-14); Neutrophils Absolute Auto 5300 /uL (1500-7000); Neutrophils Percent Auto 62.6 % (50-75); Platelet Count 297 X10^3/uL (150-400); Red Blood Cell Count 4.18 X10^6/uL (4.0-5.2); Red Cell Distribution Width 19.3 % (11.6-14.8); White Blood Cell Count 8.4 X10^3/uL (4.5-11.0)
[2018-10-27 10:17] LABS: Alanine Aminotransferase 35 IU/L (9-52); Aspartate Aminotransferase 26 IU/L (14-36); Blood Urea Nitrogen 7 mg/dL (7-17); Estimated Glomerular Filt Rate > 60.0 mL/min (>60); Uric Acid 3.6 mg/dL (2.5-6.2)
[2018-10-28 13:21] LABS: Strep Grp B PCR POS for Grp B Strep
== END ==
PROVIDERS: Family Provider Family Medicine; PCP Family Medicine
DX: O16.3 Unspecified maternal hypertension, third trimester (principal); Z34.83 Encounter for supervision of other normal pregnancy, third trimester; Z3A.36 36 weeks gestation of pregnancy
CPT/HCPCS: 36415; 82565; 84450; 84460; 84520; 84550; 85025; 87653

== ENCOUNTER 2018-11-15 15:50 | Outpatient (CLI) | payer OTHER, MEDICAID, SELFPAY ==
--- NOTE | 2018-11-15 16:40 | PM.OBTRLD ---
Visit Information Visit Information Date of evaluation: 11/15/18 Primary OB Provider: Justice Mcdonald On-call OB Provider: Justa Hamilton Reason for Evaluation: Yes rule out labor Comments/Additional reasons for admission: Painful contractions starting earlier today. Now 6-7/10 on the pain scale. No LOF, vaginal bleeding. Believes lost mucus plug. PFSH Medical History Bipolar 1 disorder (Chronic) Depression (Chronic) Distal paresthesia (Chronic) Menometrorrhagia (Chronic) Migraines (Chronic) PTSD (post-traumatic stress disorder) (Chronic) Port-a-cath in place (Chronic) Urinary leakage (Chronic) Ear infection (Resolved) History of wisdom tooth extraction (Resolved) Surgical History Hx of tonsillectomy (Resolved) Hx of unilateral salpingectomy (Resolved) Social History Smoking Status: Former smoker Evaluation Evaluation Baseline heart rate: 120 Variability: Moderate (11-25) monitor accelerations: Present monitor decelerations: Absent Contraction Frequency (minutes): 6 Uterine Contraction Intensity: Moderate Category of Tracing: I Cervical dilation (cm): 1 Cervical effacement (%): 50 station: -4 Diagnosis, Plan/Disposition Final Diagnosis (1) Uterine contractions: Current Visit: Yes Status: Acute Plan/Disposition Plan: d/c home okay for tylenol for pain control. pt declines additional pain medications or sleep aides. OB Disposition: home
== END 2018-11-15 16:45 | disposition home or self-care (01) ==
LOC: OB 11-16 12:43
PROVIDERS: Family Provider Family Medicine; PCP Family Medicine; Visit Provider Family Medicine
DX: Z34.83 Encounter for supervision of other normal pregnancy, third trimester (principal); Z3A.39 39 weeks gestation of pregnancy
CPT/HCPCS: 59025; 59050; G0378; G0379

== ENCOUNTER 2018-11-16 16:40 | Outpatient (CLI) | payer OTHER, MEDICAID, SELFPAY | END 2018-11-16 18:19 | disposition home or self-care (01) | LOC: OB 11-17 11:51 | PROVIDERS: Family Provider Family Medicine; PCP Family Medicine; Visit Provider Obstetrics & Gynecology | DX: O36.8190 Decreased fetal movements, unspecified trimester, not applicable or unspecified (principal); Z3A.39 39 weeks gestation of pregnancy | CPT/HCPCS: 59025; G0378; G0379 ==

== ENCOUNTER 2018-11-18 11:29 | Inpatient (IN) | payer OTHER, MEDICAID, SELFPAY ==
--- NOTE | 2018-11-18 11:46 | PM.OBHP.1 ---
OB HPI Date/Time Date of admission: 11/18/18 Date Patient Seen: 11/18/18 Time Patient Seen: 11:46 History of Present Condition Chief complaint: INDUCTION OF LABOR : 5 Para: 2 Estimated Date of Delivery: 11/20/18 Estimated Gestational Age (weeks): 40 wee Narrative: Tim Martinez is a 28 year old female four para two AB1 is a currently at term with polyhydramnios. Patient has a favorable He nine cervix and is admitted for induction of labor. Patient has a history of granulosa cell tumor of the ovary. Her inhibin B have been negative throughout the . Detailed record of her antepartum course is in the antepartum record Indications Indication for induction OB: other Other reason(s) for admission: Polyhydramnios History of Present care: good care Dating criteria: LMP confirmed by 1st trimester US Ultrasounds: normal 1st trimester US, normal mid trimester US and other (3rd trimester documenting polyhydramnios but not increasing) Obstetrical complications: other (Polyhydramnios) Medical complications: other (History granulosa cell tumor of the ovary) Narrative: Patient admitted for induction of labor at term with polyhydramnios PFSH Medical History Bipolar 1 disorder (Chronic) Depression (Chronic) Distal paresthesia (Chronic) Menometrorrhagia (Chronic) Migraines (Chronic) PTSD (post-traumatic stress disorder) (Chronic) Port-a-cath in place (Chronic) Urinary leakage (Chronic) Ear infection (Resolved) History of wisdom tooth extraction (Resolved) Surgical History Hx of tonsillectomy (Resolved) Hx of unilateral salpingectomy (Resolved) Social History Smoking Status: Former smoker Meds Home Medications Medication Instructions Recorded Confirmed Type promethazine [Phenergan] 25 mg RC Q6HP PRN 03/16/18 04/15/18 History promethazine 12.5 mg tablet 12.5 mg PO Q6HP PRN #30 tab 04/15/18 Rx lamotrigine 200 mg tablet 200 mg PO QPM #30 tab 07/28/18 Rx lorazepam 0.5 mg tablet 0.5 mg PO Q8HP PRN #50 tab 10/05/18 Rx fluconazole 150 mg tablet 150 mg PO ONCE #1 tab 10/07/18 Rx amoxicillin 500 mg tablet 500 mg PO BID #20 tab 12/20/18 Rx fluconazole 150 mg tablet 150 mg PO ONCE #1 tab 10/27/18 Rx oxycodone 5 mg capsule 5 mg PO Q4-6H PRN #20 cap 10/27/18 Rx ranitidine 150 mg capsule 150 mg PO BID #60 cap 11/03/18 Rx Allergies Allergy/AdvReac Type Severity Reaction Status Date / Time ketorolac [From Toradol] Allergy Intermediate Verified 10/05/18 14:20 aripiprazole [From ABILIFY] Allergy Mild MOOD SWINGS Verified 10/05/18 14:20 ethinyl estradiol Allergy Mild ITCHING Verified 10/05/18 14:20 [From NUVARING] etonogestrel [From NUVARING] Allergy Mild ITCHING Verified 10/05/18 14:20 hydrocodone [HYDROCODONE] Allergy Mild ITCHING Verified 10/05/18 14:20 tramadol [TRAMADOL] Allergy Mild ITCHING Verified 10/05/18 14:20 morphine AdvReac Intermediate Headache Verified 10/05/18 14:20
[2018-11-18 12:00] LABS: Add Manual Diff / Slide Review NO; Basophils Percent Auto 0.5 % (0-2); Eosinophils Percent Auto 0.7 % (2-4); Hematocrit 34.1 % (36-46); Hemoglobin 11.1 g/dL (12.0-16.0); Lymphocytes Percent Auto 20.9 % (25-40); Mean Corpuscular HGB Conc 32.7 % (30-36); Mean Corpuscular Volume 79.6 fL (80-100); Monocytes Percent Auto 6.3 % (3-14); Neutrophils Absolute Auto 8000 /uL (1500-7000); Neutrophils Percent Auto 71.6 % (50-75); Platelet Count 315 X10^3/uL (150-400); Red Blood Cell Count 4.28 X10^6/uL (4.0-5.2); White Blood Cell Count 11.1 X10^3/uL (4.5-11.0)
[2018-11-18] MEDS: LACTATED RINGERS 1,000 ML 100 ML IV ×2 (12:00→15:12)
[2018-11-18] MEDS: PENICILLIN G POTASSIUM 5,000,000 UNIT in DEXTROSE 5% IN WATER 250 ML IV (12:24)
[2018-11-18] MEDS: OXYTOCIN PREMIX 30 UNIT/500 ML PLAST..BAG IV (12:50)
--- NOTE | 2018-11-18 14:02 | PM.OBPNLAB ---
Date/Time Date Patient Seen: 11/18/18 Time Patient Seen: 14:02 Pain Control Pain control: tolerating well Comments: Pitocin at nine milliunits Pelvic Exam Dilation (cm): 3 Effacement (%): 70 station: -3 Amniotic membrane status: Ruptured Comments: A RM with clear fluid Contractions Contractions on admission: regular Monitor mode: External Contraction frequency (min): 9 Contraction duration (min): 60 Status status: Category l Heart Rate Baseline: 140 Monitor Decelerations: Absent Monitor Variability: Moderate Assessment and Plan Assessment: active labor and induction ongoing Plan: continuous present management
[2018-11-18] MEDS: PENICILLIN G POTASSIUM 3,000,000 UNIT/50 ML FROZ.PIGGY 100 UNIT IV (16:46)
--- NOTE | 2018-11-18 17:12 | PM.OBPRVD ---
Delivery date: 11/18/18 Intrapartal events: None Cervical ripening method: none Induction method: per pitocin protocol Delivery augmentation: rupture of membranes Delivery monitor: external FHT and external uterine Route of delivery: Episiotomy description: None L&D Laceration Description: None Estimated blood loss (mL): 150 Anesthesia type: Epidural Complications: none Narrative: Pt at term with polyhydramnis. Induced with pitocin . Given 2 courses of pencillin for group b strep. Epidural. Rapid labor and of live born male with of 9,9 Plan for aftercare: routine aftercare
[2018-11-18] MEDS: IBUPROFEN 600 MG TABLET PO (18:30)
[2018-11-18 19:50] VITALS: BP 118/80
[2018-11-18] MEDS: OXYCODONE/ACETAMINOPHEN 5/325 TABLET 1 TAB PO (19:50)
[2018-11-19] MEDS: OXYCODONE/ACETAMINOPHEN 5/325 TABLET 2 TAB PO ×4 (00:03→12:38)
[2018-11-19] MEDS: IBUPROFEN 600 MG TABLET PO ×2 (00:04→08:35)
[2018-11-19 04:04] VITALS: TEMP 36.7
[2018-11-19 06:43] LABS: Hematocrit 33.8 % (36-46); Hemoglobin 11.2 g/dL (12.0-16.0)
[2018-11-19] MEDS: DOCUSATE 250 MG CAPSULE PO (08:34)
[2018-11-19 08:36] VITALS: TEMP 36.6
--- NOTE | 2018-11-19 10:24 | PM.OBDS.1 ---
Discharge Providers Date of admission: 11/18/18 11:29 Primary care physician: Justa Hamilton MD Consults: 11/18/18 18:15 Consult to Dry Clipper Tender Routine Comment: Discharge provider: Justice Mcdonald MD Discharge Date: 11/19/18 Summary Date Patient Seen: 11/19/18 Time Patient Seen: 10:25 Hospital Course: The patient is a 28-year-old white female four now para three AB1 who was admitted for induction because of polyhydramnios. Pitocin was begun and membranes ruptured. The fluid was clear. An epidural was placed the patient made rapid progress to complete and delivered spontaneously a male infant weighing 8 lb 7 oz with scores of nine at 1 min nine at 5 min in good condition. There were no cervical vaginal or perineal lacerations. The placenta delivered spontaneously. The cord had three vessels. The estimated blood loss was 150 cc. Post delivery the patient did well. She remained afebrile with stable vital signs and was progressively alimented and ambulated. She was discharged home for follow-up in four weeks. Discharge instructions were given with regards to diet wound care bathing and exercise. Peripartum Data Delivery Method: Natural Vaginal Laceration description: None Episiotomy description: None Procedures: None complications: none Status at Discharge Cognitive/behavioral status at discharge: Normal Functional status at discharge: independent ambulation Overall status at discharge: patient is back to baseline Time Spent with Patient Total time spent providing and/or coordinating discharge services: Less than 30 minutes Specific discharge activities: Routine activity May shower No intercourse Objective Labs Result Diagrams: 11/19/18 06:30 Labs: Laboratory Results - last 24 hr 11/18/18 11/18/18 11/19/18 Unknown Unknown 06:30 WBC 11.1 H RBC 4.28 Hgb 11.1 L 11.2 L Hct 34.1 L 33.8 L MCV 79.6 L MCH 26.0 MCHC 32.7 RDW 20.0 H Plt Count 315 Neut % (Auto) 71.6 Lymph % (Auto) 20.9 L [place] % (Auto) 6.3 Eos % (Auto) 0.7 L Baso % (Auto) 0.5 Neut # (Auto) 8000 H Blood Type O Positive Antibody Screen Negative Discharge Plan Discharge Plan Patient Disposition: Home Discharge Med Rec/Prescriptions Prescriptions: New benzocaine-menthol [Dermoplast (with menthol)] 20-0.5 % Aerosol 1 spray Topical Q1HR PRN (Reason: perineal pain) Qty: 78 RF: 0 ibuprofen 600 mg Tablet 600 mg PO Q6HR PRN (Reason: Pain, Mild (1-3)) Qty: 30 RF: 0 docusate sodium 250 mg Capsule 250 mg PO DAILY Qty: 14 RF: 0 lanolin [[id number]] Cream 1 applic Topical PRN PRN (Reason: Tenderness) Qty: 1 RF: 0 oxycodone-acetaminophen 5-325 mg Tablet 1 tab PO Q4HR PRN (Reason: Pain, Moderate (4-6)) Qty: 30 RF: 0 Continue lamotrigine [Lamictal] 200 mg tablet 200 mg PO QPM Qty: 30 RF: 3 fluconazole 150 mg tablet 150 mg PO ONCE Qty: 1 RF: 0 ranitidine HCl 150 mg capsule 150 mg PO BID Qty: 60 RF: 1 promethazine 12.5 mg tablet 12.5 mg PO Q6HP PRN (Reason: Nausea And Vomiting) Qty: 30 RF: 2 fluconazole 150 mg tablet 150 mg PO ONCE Qty: 1 RF: 0 amoxicillin 500 mg tablet 500 mg PO BID Qty: 20 RF: 0 oxycodone 5 mg capsule 5 mg PO Q4-6H PRN (Reason: pain) Qty: 20 RF: 0 lorazepam [Ativan] 0.5 mg tablet 0.5 mg PO Q8HP PRN (Reason: Anxiety) Qty: 50 RF: 0 promethazine [Phenergan] 25 MG suppository 25 mg RC Q6HP PRN (Reason: Nausea And Vomiting) RF: 0 Provider Discharge Instructions Diet: Diet as Tolerated Activity: Up ad alejandro May shower Skin/Wound/Dressing Care Report to your healthcare provider any signs of infection, such as:: chills, fever, increased pain, unusual drainage and unusual redness Discharge Data Primary Care Provider: Justa Hamilton Attending Provider: Justice Mcdonald Admit Date/Time: 11/18/18 11:29
[2018-11-19 11:50] VITALS: BP 121/74; PULSE 79; RESP 16; TEMP 36.8
== END 2018-11-19 16:15 | disposition home or self-care (01) | DRG 560 ==
PROVIDERS: Family Provider Family Medicine; PCP Family Medicine
DX: O40.3XX0 Polyhydramnios, third trimester, not applicable or unspecified (principal); O99.824 Streptococcus B carrier state complicating childbirth; Z3A.40 40 weeks gestation of pregnancy; Z37.0 Single live birth
CPT/HCPCS: 01967; 36415; 59050; 59409; 85014; 85018; 85025; 86850; 86900; 86901; G0379; J2540; J2590

== ENCOUNTER → 2019-01-06 10:19 | Outpatient (CLI) | payer OTHER, MEDICAID, SELFPAY ==
[2019-01-10 17:34] LABS: Inhibin B < 10 pg/mL
== END ==
PROVIDERS: PCP Family Medicine
DX: C56.9 Malignant neoplasm of unspecified ovary (principal)
CPT/HCPCS: 36415; 82397

== ENCOUNTER → 2019-03-02 16:58 | Outpatient (CLI) | payer OTHER, MEDICAID, SELFPAY ==
[2019-03-02 17:33] LABS: Bacteria Urine None Seen
[2019-03-02 18:20] LABS: Appearance Urine UA CLEAR; Bilirubin Urine UA NEGATIVE (NEGATIVE); Color Urine UA YELLOW; Glucose Urine UA NEGATIVE (Negative); Ketones Urine UA NEGATIVE (NEGATIVE); Leukocyte Esterase Urine UA NEGATIVE (NEGATIVE); Nitrite Urine UA NEGATIVE (Negative); Occult Blood Urine UA 3+ (Negative); Protein Urine UA 1+ (Negative); Specific Gravity Urine UA >=1.030 (1.000-1.035); Urobilinogen Urine UA 0.2 E.U./dL (0.2)
[2019-03-02 18:38] LABS: Culture Indicated Urine Cult Not Indicated; Mucus Urine 3+ (Negative); RBC Urine 30-100/HPF (0-5/HPF); Renal Epithelial Cells Urine 0-1/HPF (0-1/HPF); Squamous Epithelial Cell Urine None Seen (0-5/HPF); WBC Urine 1-5/HPF (0-5/HPF)
== END ==
PROVIDERS: PCP Family Medicine; Visit Provider Family Medicine
DX: R30.0 Dysuria (principal)
CPT/HCPCS: 81001

== ENCOUNTER 2019-03-05 12:44 | Emergency (ER) | payer OTHER, MEDICAID, SELFPAY ==
[2019-03-05 12:57] VITALS: BP 153/100; PULSE 82; RESP 16; TEMP 36.2; O2SAT 98
--- NOTE | 2019-03-05 14:33 | PC.NURSE ---
pt reports her is having a mental schizophrenic breakdown. She was told that if she did not go to the ER again to check out her depression that her in laws would call CPS. Pt was seen in the ER at [facility] on Wednesday and Wednesday for depression. SHe has an appointment with [facility] on Wednesday. pt reports she is staying with her parents at this time.
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
[2019-03-05 15:31] LABS: Add Manual Diff / Slide Review NO; Basophils Absolute Auto 0 /uL (0-100); Basophils Percent Auto 0.5 % (0-2); Eosinophils Absolute Auto 100 /uL (0-450); Eosinophils Percent Auto 1.7 % (2-4); Hematocrit 37.3 % (36-46); Hemoglobin 12.5 g/dL (12.0-16.0); Lymphocytes Absolute Auto 3300 /uL (1100-4500); Lymphocytes Percent Auto 42.5 % (25-40); Mean Corpuscular HGB Conc 33.7 % (30-36); Mean Corpuscular Hemoglobin 29.2 PG (26-34); Mean Corpuscular Volume 86.7 fL (80-100); Monocytes Absolute Auto 500 /uL (0-900); Neutrophils Absolute Auto 3800 /uL (1500-7000); Neutrophils Percent Auto 49.3 % (50-75); Platelet Count 348 X10^3/uL (150-400); Red Cell Distribution Width 15.7 % (11.6-14.8); White Blood Cell Count 7.8 X10^3/uL (4.5-11.0)
[2019-03-05 15:42] LABS: Alanine Aminotransferase 35 IU/L (9-52); Albumin 4.9 g/dL (3.5-5.0); Albumin Globulin Ratio 1.6 (1.0-2.8); Alkaline Phosphatase 69 U/L (38-126); Aspartate Aminotransferase 28 IU/L (14-36); Bilirubin Total 0.4 mg/dL (0.2-1.3); Blood Urea Nitrogen 21 mg/dL (7-17); Calcium 9.8 mg/dL (8.4-10.2); Carbon Dioxide 25 mmol/L (22-32); Chloride 104 mmol/L (98-107); Estimated Glomerular Filt Rate > 60.0 mL/min (>60); Ethanol (ETOH) < 10 mg/dL; Globulin 3.1 g/dL (1.7-4.1); Glucose 85 mg/dL (70-100); HEMOLYSIS < 15 (0-50); Potassium 3.8 mmol/L (3.4-5.1); Sodium 140 mmol/L (137-145)
[2019-03-05 16:49] VITALS: BP 127/91; PULSE 73; RESP 73; TEMP 37; O2SAT 99
== END 2019-03-05 16:50 | disposition home or self-care (01) ==
PROVIDERS: Emergency Provider Emergency Medicine; PCP Family Medicine
DX: F32.89 Other specified depressive episodes (principal)
CPT/HCPCS: 36415; 80053; 80320; 82962; 85025; 99282; 99283

== ENCOUNTER → 2019-03-31 11:32 | Outpatient (CLI) | payer OTHER, MEDICAID, SELFPAY ==
[2019-04-05 16:28] LABS: Inhibin B < 10 pg/mL
== END ==
PROVIDERS: PCP Family Medicine; Visit Provider Family Medicine
DX: C56.1 Malignant neoplasm of right ovary (principal); C56.9 Malignant neoplasm of unspecified ovary
CPT/HCPCS: 36415; 82397

== ENCOUNTER → 2019-06-14 15:17 | Outpatient (CLI) | payer OTHER, MEDICAID, SELFPAY ==
[2019-06-14 16:05] LABS: Add Manual Diff / Slide Review NO; Basophils Absolute Auto 0 /uL (0-100); Basophils Percent Auto 0.2 % (0-2); Eosinophils Absolute Auto 100 /uL (0-450); Eosinophils Percent Auto 1.2 % (2-4); Hematocrit 39.2 % (36-46); Hemoglobin 13.2 g/dL (12.0-16.0); Lymphocytes Absolute Auto 2500 /uL (1100-4500); Lymphocytes Percent Auto 35.6 % (25-40); Mean Corpuscular HGB Conc 33.7 % (30-36); Mean Corpuscular Hemoglobin 28.6 PG (26-34); Monocytes Absolute Auto 500 /uL (0-900); Neutrophils Absolute Auto 3900 /uL (1500-7000); Platelet Count 320 X10^3/uL (150-400); Red Blood Cell Count 4.61 X10^6/uL (4.0-5.2); Red Cell Distribution Width 13.8 % (11.6-14.8)
[2019-06-14 16:07] LABS: Appearance Urine UA CLEAR; Bilirubin Urine UA NEGATIVE (NEGATIVE); Color Urine UA YELLOW; Glucose Urine UA NEGATIVE (Negative); Ketones Urine UA NEGATIVE (NEGATIVE); Leukocyte Esterase Urine UA NEGATIVE (NEGATIVE); Nitrite Urine UA NEGATIVE (Negative); Occult Blood Urine UA 3+ (Negative); Protein Urine UA NEGATIVE (Negative); Specific Gravity Urine UA 1.025 (1.000-1.035); Urobilinogen Urine UA 0.2 E.U./dL (0.2)
[2019-06-14 16:24] LABS: Alanine Aminotransferase 46 IU/L (9-52); Albumin 4.7 g/dL (3.5-5.0); Albumin Globulin Ratio 1.5 (1.0-2.8); Alkaline Phosphatase 64 U/L (38-126); Amylase 58 U/L (30-110); Aspartate Aminotransferase 31 IU/L (14-36); Bilirubin Total 0.4 mg/dL (0.2-1.3); Blood Urea Nitrogen 21 mg/dL (7-17); C-Reactive Protein Quant 1.2 mg/dL (<1.0); Calcium 9.7 mg/dL (8.4-10.2); Carbon Dioxide 26 mmol/L (22-32); Chloride 102 mmol/L (98-107); Estimated Glomerular Filt Rate > 60.0 mL/min (>60); Globulin 3.2 g/dL (1.7-4.1); Glucose 96 mg/dL (70-100); HEMOLYSIS < 15 (0-50); Sodium 141 mmol/L (137-145); Total Protein 7.9 g/dL (6.3-8.2)
[2019-06-14 16:24] LABS: RBC Urine 1-5/HPF (0-5/HPF)
[2019-06-14 16:25] LABS: Bacteria Urine Few (2-10); Culture Indicated Urine Cult Not Indicated; Mucus Urine 1+ (Negative); Squamous Epithelial Cell Urine 0-1 /HPF (0-5/HPF)
[2019-06-14 16:32] LABS: Erythrocyte Sedimentation Rate 18 MM/HR (0-20)
== END ==
PROVIDERS: PCP Family Medicine; Visit Provider Family Medicine
DX: R10.9 Unspecified abdominal pain (principal)
CPT/HCPCS: 36415; 80053; 81001; 82150; 83516; 85025; 85651; 86140

== ENCOUNTER 2020-01-22 10:03 | Emergency (ER) | payer OTHER, MEDICAID, SELFPAY ==
[2020-01-22 10:18] VITALS: BP 136/89; PULSE 87; RESP 12; TEMP 36.7; O2SAT 99; BMI 42.0
[2020-01-22] MEDS: ONDANSETRON 4 MG/2 ML INJ IV ×2 (10:40→13:02)
[2020-01-22 10:49] VITALS: BP 125/83; PULSE 84; RESP 14; TEMP 36.9; O2SAT 98
[2020-01-22] MEDS: SODIUM CHLORIDE 0.9% 1,000 ML 1000 ML IV (10:52)
[2020-01-22 11:01] LABS: Add Manual Diff / Slide Review NO; Basophils Absolute Auto 0 /uL (0-100); Basophils Percent Auto 0.4 % (0-2); Eosinophils Absolute Auto 200 /uL (0-450); Eosinophils Percent Auto 1.7 % (2-4); Hematocrit 39.8 % (36-46); Hemoglobin 13.5 g/dL (12.0-16.0); Lymphocytes Absolute Auto 2600 /uL (1100-4500); Lymphocytes Percent Auto 27.4 % (25-40); Mean Corpuscular HGB Conc 33.9 % (30-36); Mean Corpuscular Hemoglobin 29.8 PG (26-34); Monocytes Absolute Auto 700 /uL (0-900); Monocytes Percent Auto 6.9 % (3-14); Neutrophils Absolute Auto 6100 /uL (1500-7000); Neutrophils Percent Auto 63.6 % (50-75); Platelet Count 370 X10^3/uL (150-400); Red Blood Cell Count 4.52 X10^6/uL (4.0-5.2); Red Cell Distribution Width 13.4 % (11.6-14.8); White Blood Cell Count 9.6 X10^3/uL (4.5-11.0)
[2020-01-22 11:14] LABS: Alanine Aminotransferase 22 IU/L (<35); Albumin Globulin Ratio 1.3 (1.0-2.8); Alkaline Phosphatase 79 U/L (38-126); Aspartate Aminotransferase 22 IU/L (14-36); BUN Creatinine Ratio 40.3 (6-22); Bilirubin Total 0.3 mg/dL (0.2-1.3); Blood Urea Nitrogen 25 mg/dL (7-17); Calcium 10.2 mg/dL (8.4-10.2); Carbon Dioxide 28 mmol/L (22-32); Chloride 100 mmol/L (98-107); Estimated Glomerular Filt Rate > 60.0 mL/min (>60); Glucose 102 mg/dL (70-100); HEMOLYSIS < 15 (0-50); Potassium 4.6 mmol/L (3.4-5.1); Sodium 139 mmol/L (137-145)
--- NOTE | 2020-01-22 11:31 | ED_ITS ---
HPI - Abdominal Pain General Chief Complaint: Abdominal Pain Stated Complaint: Pelvic pain,nausea Time Seen by Provider: 01/22/20 10:19 Source: patient Mode of arrival: Ambulatory History of Present Illness HPI narrative: 29-year-old woman status post ovarian cancer diagnosed at the age of 26 with chronic pelvic pain and narcotic management since then. She has graduated from [facility] follow-up back to her primary care physician. She started feeling slightly unwell about 48 hours ago increasing nausea was unable to take her usual oxycodone than worsening nausea abdominal pain and now diarrhea. I suspect that this is a combination of her usual chronic pelvic pain slightly exacerbated with withdrawal symptoms complicating this. She describes no fevers, she is passing diarrhea and flatus no evidence of a bowel obstruction. No coughing no dyspnea and no chest pain. Related Data Previous Rx's Medication Instructions Recorded Electric Breast Pump #1 ea 11/25/18 acetaminophen 650 mg 650 mg PO QID #120 tab 01/06/19 tablet,extended release lidocaine 5 % topical patch 1 patch TOP DAILY #30 each 08/25/19 famotidine 40 mg tablet 40 mg PO BID #60 tab 09/29/19 prochlorperazine 25 mg rectal 25 mg [place] Q12H PRN #20 suppositor 10/02/19 suppository prochlorperazine maleate 5 mg 5 mg PO Q8H PRN #20 tab 10/30/19 tablet fluconazole 150 mg tablet 150 mg PO Q3D #2 tab 12/06/19 oxycodone-acetaminophen 5 mg-325 1 tab PO TID PRN #90 tab 12/27/19 mg tablet bupropion HCl 300 mg 24 hr tablet, 300 mg PO QAM #30 tab 01/05/20 extended release hydroxyzine pamoate 25 mg capsule See Rx Instructions PO TID PRN #90 01/05/20 cap lamotrigine 200 mg tablet See Rx Instructions .ROUTE 01/05/20 .COMPLEX #30 tablet nicotine (polacrilex) 2 mg gum 2 mg BUCCAL Q2H PRN #20 each 01/05/20 olanzapine 10 mg tablet 10 mg PO BEDTIME #30 tab 01/05/20 olanzapine 5 mg tablet See Rx Instructions PO DAILY #60 01/05/20 tab Allergies Allergy/AdvReac Type Severity Reaction Status Date / Time ketorolac [From Toradol] Allergy Intermediate Verified 01/22/20 10:22 aripiprazole [From ABILIFY] Allergy Mild MOOD SWINGS Verified 01/22/20 10:22 ethinyl estradiol Allergy Mild ITCHING Verified 01/22/20 10:22 [From NUVARING] etonogestrel [From NUVARING] Allergy Mild ITCHING Verified 01/22/20 10:22 hydrocodone [HYDROCODONE] Allergy Mild ITCHING Verified 01/22/20 10:22 tramadol [TRAMADOL] Allergy Mild ITCHING Verified 01/22/20 10:22 morphine AdvReac Intermediate Headache Verified 01/22/20 10:22 Review of Systems Review of Systems Narrative: All systems reviewed and are unremarkable except as noted in HPI and below Patient History Medical History Bipolar 1 disorder (Chronic) Depression (Chronic) Distal paresthesia (Chronic) Ear infection (Resolved) Menometrorrhagia (Chronic) Migraines (Chronic) Port-a-cath in place (Chronic) PTSD (post-traumatic stress disorder) (Chronic) Urinary leakage (Chronic) Surgical History History of wisdom tooth extraction (Resolved) Hx of tonsillectomy (Resolved) Hx of unilateral salpingectomy (Resolved) Social History household members: spouse Smoking Status: Former smoker Smoking Status: Former smoker Substance Use Type: does not use Exam Narrative Exam Narrative: General: Healthy appearing, in no acute distress. Able to give a complete and coherent history. Well-nourished well-developed HEENT: Moist mucous membranes, normal sclera with reactive pupils, Neck: No JVD, supple Respiratory: Lungs are clear to auscultation, no wheezing no rales no rhonchi. Full and symmetrical air movement Cardiac: Regular rate and rhythm no murmurs no bruits Abdomen: Soft, slightly tender in the left lower quadrant, good bowel tones, no flank pain Skin: Warm and dry, no rashes Neurologic: Grossly neurologically intact with no obvious asymmetries or abnormalities Extremities: No trauma, well perfused Psych: Cooperative, appropriate insight and affect Initial Vital Signs Initial Vital Signs: Vital Signs Temperature 98.1 F 01/22/20 10:18 Pulse Rate 87 01/22/20 10:18 Respiratory Rate 12 01/22/20 10:18 Blood Pressure 136/89 01/22/20 10:18 Pulse Oximetry 99 01/22/20 10:18 Course Orders Ordered: ED Orders 01/22/20 10:50 Complete Blood Count AUTO DIFF Stat Comprehensive Metabolic Panel Stat Discontinued Medications Diphenhydramine HCl (Benadryl) 25 mg IV NOW ONE Stop: 01/22/20 12:52 Last Admin: 01/22/20 13:03 Dose: Not Given Documented by: Hydromorphone HCl (Dilaudid) 1 mg IV NOW ONE Stop: 01/22/20 11:41 Last Admin: 01/22/20 11:50 Dose: 1 mg Documented by: JACLYN Hydromorphone HCl (Dilaudid) 1 mg IV NOW ONE Stop: 01/22/20 12:52 Last Admin: 01/22/20 13:02 Dose: 1 mg Documented by: Sodium Chloride (Normal Saline 0.9%) 1,000 mls @ 1,000 mls/hr IV BOLUS ONE Stop: 01/22/20 11:18 Last Admin: 01/22/20 10:52 Dose: 1,000 mls/hr Documented by: JACLYN Metoclopramide HCl (Reglan) 10 mg IV NOW ONE Stop: 01/22/20 12:52 Last Admin: 01/22/20 13:02 Dose: 10 mg Documented by: Ondansetron HCl (Zofran) 4 mg IV NOW ONE Stop: 01/22/20 10:20 Last Admin: 01/22/20 10:40 Dose: 4 mg Documented by: JACLYN Ondansetron HCl (Zofran) 4 mg IV NOW ONE Stop: 01/22/20 12:54 Last Admin: 01/22/20 13:02 Dose: 4 mg Documented by: Vital Signs Vital signs: Vital Signs - 8 hr 01/22/20 10:18 01/22/20 10:49 01/22/20 12:00 Temperature 98.1 F 98.4 F Pulse Rate 87 84 80 Respiratory Rate 12 14 18 Blood Pressure 136/89 Blood Pressure [Right Arm] 125/83 141/87 H Pulse Oximetry 99 98 98 MDM - Abdominal Pain Medical Records Attestation: I reviewed the patient's medical records. Lab Data Attestation: I reviewed the patient's lab results. Result diagrams: 01/22/20 10:50 01/22/20 10:50 Labs: Lab Results 01/22/20 01/22/20 Range/Units 10:50 10:50 WBC 9.6 (4.5-11.0) X10^3/uL RBC 4.52 (4.0-5.2) X10^6/uL Hgb 13.5 (12.0-16.0) g/dL Hct 39.8 (36-46) % MCV 88.0 (80-100) fL MCH 29.8 (26-34) PG MCHC 33.9 (30-36) % RDW 13.4 (11.6-14.8) % Plt Count 370 (150-400) X10^3/uL Neut % (Auto) 63.6 (50-75) % Lymph % (Auto) 27.4 (25-40) % [place] % (Auto) 6.9 (3-14) % Eos % (Auto) 1.7 L (2-4) % Baso % (Auto) 0.4 (0-2) % Neut # (Auto) 6100 (1962-5066) /uL Lymph # (Auto) 2600 (6086-8442) /uL [place] # (Auto) 700 (0-900) /uL Eos # (Auto) 200 (0-450) /uL Baso # (Auto) 0 (0-100) /uL Sodium 139 (137-145) mmol/L Potassium 4.6 (3.4-5.1) mmol/L Chloride 100 (98-107) mmol/L Carbon Dioxide 28 (22-32) mmol/L BUN 25 H (7-17) mg/dL Creatinine 0.62 (0.52-1.04) mg/dL Estimated GFR > 60.0 (>60) mL/min BUN/Creatinine Ratio 40.3 H (6-22) Glucose 102 H (70-100) mg/dL Calcium 10.2 (8.4-10.2) mg/dL Total Bilirubin 0.3 (0.2-1.3) mg/dL AST 22 (14-36) IU/L ALT 22 (<35) IU/L Alkaline Phosphatase 79 (38-126) U/L Total Protein 9.0 H (6.3-8.2) g/dL Albumin 5.0 (3.5-5.0) g/dL Globulin 4.0 (1.7-4.1) g/dL Albumin/Globulin Ratio 1.3 (1.0-2.8) Point of care testing: Point of Care Testing Test Results Negative Urine Dip Bedside Urine Glucose Negative Bedside Urine Bilirubin - Negative Bedside Urine Ketone - Negative Urine Specific [place] 1.020 Bedside Urine Occult Blood - Negative Bedside Urine pH 6.5 Bedside Urine Protein - Negative Bedside Urine Urobilinogen - Negative Bedside Urine Nitrite - Negative Bedside Urine Leukocytes - Negative Esterase MDM Narrative Medical decision making narrative: No evidence of acute surgical issues are infection. Acute nausea and pain with concurrent opioid withdrawal symptoms. We had long discussion today about her chronic pain management. Explained to her that at 29 she has a long life ahead of her to be dependent on opioids. She is being seen by chronic pain management and I encouraged her to ask about Suboxone treatment for chronic pain to replace her narcotics to see if she might be more functional, have less pain, and have less subsequent addiction concerns over the coming years. She seemed quite interested in this possibility. Nausea and vomiting are better as is pain but all are still notable. Will treat with additional Dilaudid, Zofran, Benadryl, Reglan and anticipate discharge home. Reviewed plan with Tim and she is in agreement Discharge Plan Departure Patient Disposition: Home Clinical Impression: Pelvic pain, Opioid dependence with withdrawal Instructions: Chronic Pelvic Pain-Female Activity Restrictions/Additional Instructions: Thank you for coming in today I am sorry that you continue to have all of these issues. Please go back to your routine medication schedule. We did talk briefly about using Suboxone to replace your narcotic for chronic pain control. I would encourage you to ask your primary care and pain providers regarding this. I wish you the best Prescriptions: No Action prochlorperazine maleate 5 mg tablet 5 mg PO Q8H PRN (Reason: nausea and vomiting) Qty: 20 RF: 3 oxycodone-acetaminophen 5-325 mg tablet 1 tab PO TID PRN (Reason: pain) Qty: 90 RF: 0 ketorolac 60 mg/2 mL solution 60 mg IM ONCE Qty: 1 RF: 0 (DME) Electric Breast Pump Qty: 1 RF: 0 acetaminophen 650 mg tablet extended release 650 mg PO QID Qty: 120 RF: 1 lidocaine 5 % adhesive patch,medicated 1 patch TOP DAILY Qty: 30 RF: 3 famotidine 40 mg tablet 40 mg PO BID Qty: 60 RF: 11 prochlorperazine 25 mg suppository 25 mg [place] Q12H PRN (Reason: nausea and vomiting) Qty: 20 RF: 3 fluconazole 150 mg tablet 150 mg PO Q3D Qty: 2 RF: 0 bupropion HCl 300 mg tablet extended release 24 hr 300 mg PO QAM Qty: 30 RF: 0 olanzapine 10 mg tablet 10 mg PO BEDTIME Qty: 30 RF: 0 hydroxyzine pamoate 25 mg capsule See Rx Instructions PO TID PRN (Reason: anxiety) Qty: 90 RF: 0 lamotrigine 200 mg tablet See Rx Instructions .ROUTE .COMPLEX Qty: 30 RF: 0 olanzapine 5 mg tablet See Rx Instructions PO DAILY Qty: 60 RF: 0 nicotine (polacrilex) 2 mg gum 2 mg BUCCAL Q2H PRN (Reason: nicotine cravings) Qty: 20 RF: 0 Referrals: Justa Hamilton MD [Primary Care Provider] -
[2020-01-22] MEDS: HYDROMORPHONE 1 MG INJ IV ×2 (11:50→13:02)
[2020-01-22 12:00] VITALS: BP 141/87; PULSE 80; RESP 18; O2SAT 98
[2020-01-22] MEDS: METOCLOPRAMIDE 10 MG/2 ML INJ IV (13:02)
[2020-01-22 13:24] VITALS: BP 125/64; PULSE 64; RESP 18; TEMP 36.3; O2SAT 98
== END 2020-01-22 13:27 | disposition home or self-care (01) ==
PROVIDERS: Emergency Provider Emergency Medicine; PCP Family Medicine
DX: R10.2 Pelvic and perineal pain (principal); F11.23 Opioid dependence with withdrawal
CPT/HCPCS: 36415; 80053; 81003; 81025; 85025; 96374; 96375; 96376; 99284; J1170; J2405; J2765

== ENCOUNTER 2020-02-17 11:36 | Emergency (ER) | payer OTHER, MEDICAID, SELFPAY ==
[2020-02-17 11:43] VITALS: BP 138/76; PULSE 95; RESP 18; TEMP 36.2; O2SAT 99
--- NOTE | 2020-02-17 11:58 | ED_ITS ---
HPI - Nausea/Vomiting/Diarrhea <Lydia StephenTEE - Last Filed: 02/17/20 15:28> General Chief complaint: Nausea/Vomiting/Diarrhea Stated complaint: Nausea, vomiting, pelvic pain Time Seen by Provider: 02/17/20 11:37 Source: patient Mode of arrival: Ambulatory Limitations: no limitations History of Present Illness HPI Narrative: 29yo female with history of ovarian cancer (has been in remission for 2 years), presents to the emergency department for lower pelvic l pain and nausea. Patient states that she occasionally she develops episodes of nausea and vomiting signs cancer treatment. Patient reports she had her right ovary and eustachian tube removed. She states when this occurs, she develops worsening pain as she is unable to keep her pain medications down. Patient reports that she takes Percocet. Patient states this episode feels similar to her past episodes. She states the nausea and vomited started last evening. 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 However, she has been tested twice in the past few weeks and has tested negative. She received a chest x-ray on 02/12/2020 this week at [facility], which was negative. Patient denies any high fevers, chest pain, cough, dizziness, syncope, dysuria, blood in vomit, stool changes, or any other concerns. Patient with seen at [facility] on 02/12/2020 for respiratory complaints (diagnosed with URI) and 02/15/2020 for pelvic pain, nausea, and vomiting (patient was given IM Phenergan and oral dose of pain medication which helped resolved her pain, she was retested for COVID-19. During the ED stay, patient was called by the health department and informed that she was positive for COVID-19. Related Data Previous Rx's Medication Instructions Recorded acetaminophen 650 mg 650 mg PO QID #120 tab 01/06/19 tablet,extended release lidocaine 5 % topical patch 1 patch TOP DAILY #30 each 08/25/19 famotidine 40 mg tablet 40 mg PO BID #60 tab 09/29/19 prochlorperazine 25 mg rectal 25 mg OR Q12H PRN #20 suppositor 10/02/19 suppository prochlorperazine maleate 5 mg 5 mg PO Q8H PRN #20 tab 10/30/19 tablet bupropion HCl 300 mg 24 hr tablet, 300 mg PO QAM #30 tab 01/05/20 extended release hydroxyzine pamoate 25 mg capsule See Rx Instructions PO TID PRN #90 01/05/20 cap lamotrigine 200 mg tablet See Rx Instructions .ROUTE 01/05/20 .COMPLEX #30 tablet olanzapine 10 mg tablet 10 mg PO BEDTIME #30 tab 01/05/20 olanzapine 5 mg tablet See Rx Instructions PO DAILY #60 01/05/20 tab oxycodone-acetaminophen 5 mg-325 1 tab PO TID PRN #90 tab 01/23/20 mg tablet promethazine 25 mg OR Q4-6H PRN #12 each 02/17/20 Allergies Allergy/AdvReac Type Severity Reaction Status Date / Time ketorolac [From Toradol] Allergy Intermediate Verified 02/17/20 11:49 aripiprazole [From ABILIFY] Allergy Mild MOOD SWINGS Verified 02/17/20 11:49 ethinyl estradiol Allergy Mild ITCHING Verified 02/17/20 11:49 [From NUVARING] etonogestrel [From NUVARING] Allergy Mild ITCHING Verified 02/17/20 11:49 hydrocodone [HYDROCODONE] Allergy Mild ITCHING Verified 02/17/20 11:49 tramadol [TRAMADOL] Allergy Mild ITCHING Verified 02/17/20 11:49 morphine AdvReac Intermediate Headache Verified 02/17/20 11:49 Review of Systems <TEE Hanks - Last Filed: 02/17/20 15:28> Review of Systems Narrative: REVIEW OF SYSTEMS: GENERAL: Denies fever, chills, malaise, or wt. loss. HENT: No head trauma, sore throat. CARDIOVASCULAR: No chest pain, palpitations, or orthopnea. RESPIRATORY: No cough. GASTROINTESTINAL: Complains of left lower pelvic pain with vomiting., see HPI GENITOURINARY: No flank pain, urinary incontinence, frequency, or dysuria. No vaginal discharge or dyspareunia. Denies concerns for STIs MUSCULOSKELETAL: No pain, weakness, or trauma. INTEGUMENTARY: No rash, lesions, or pruritus. NEURO: No numbness, tingling, memory loss, confusion, or headaches. PSYCH: No behavior or mood changes. Patient History <TEE Hanks - Last Filed: 02/17/20 15:28> Medical History Bipolar 1 disorder (Chronic) Depression (Chronic) Distal paresthesia (Chronic) Ear infection (Resolved) Menometrorrhagia (Chronic) Migraines (Chronic) Port-a-cath in place (Chronic) PTSD (post-traumatic stress disorder) (Chronic) Urinary leakage (Chronic) Surgical History History of wisdom tooth extraction (Resolved) Hx of tonsillectomy (Resolved) Hx of unilateral salpingectomy (Resolved) Social History household members: spouse Smoking Status: Current every day smoker Smoking Status: Current every day smoker alcohol intake frequency: 0-2 drinks per day Substance Use Type: does not use Exam <TEE Hanks - Last Filed: 02/17/20 15:28> Initial Vital Signs Initial Vital Signs: Vital Signs Temperature 97.1 F L 02/17/20 11:43 Pulse Rate 95 H 02/17/20 11:43 Respiratory Rate 18 02/17/20 11:43 Blood Pressure 138/76 02/17/20 11:43 Pulse Oximetry 99 02/17/20 11:43 PHYSICAL EXAMINATION: GENERAL: Well groomed, alert, and cooperative. Answers questions promptly and appropriately. Vital signs noted. HENT: Normocephalic, atraumatic. Oral mucosa is pink and moist. EYES: Conjunctiva pink, sclera white, no periorbital swelling. CARDIOVASCULAR: S1 and S2 sounds normal. Regular rate and rhythm, no murmurs, clicks, or bruits. No pedal edema. RESPIRATORY: Normal respiratory rate, trachea midline, airway patent. No stridor, nasal flaring or accessory muscle use. Lungs are clear in all sadler without wheeze, rhonchi, or crackles. No cough observed during examination. GASTROINTESTINAL: Bowel sounds normoactive. Abdomen is soft, patient reported left lower pelvic tenderness, not worse with palpation. S of abdomen nontender. No organomegaly, no palpable masses. GENITALURINARY: No flank tenderness. MUSCULOSKELETAL: Normal gait and coordination. Equal tone and mass bilaterally. EXTREMITIES: CMS intact, no pedal edema. SKIN: Warm, dry, soft, appropriate color for ethnicity. No lesions, rashes, or wounds to visualized areas. NEURO: Alert and Oriented X 3. Good coordination. No ataxia, or sensory deficits, or cognitive issues. PSYCH: Appropriate affect and mood. <Caroline Gonsalez MD - Last Filed: 02/17/20 16:53> Initial Vital Signs Initial Vital Signs: Vital Signs Temperature 97.1 F L 02/17/20 11:43 Pulse Rate 95 H 02/17/20 11:43 Respiratory Rate 18 02/17/20 11:43 Blood Pressure 138/76 02/17/20 11:43 Pulse Oximetry 99 02/17/20 11:43 Course <TEE Hanks - Last Filed: 02/17/20 15:28> Course Course Narrative: Patient was initially given 1 L fluid and 2 mg of Haldol to help with nausea. She did not vomit but states she still continued to have nausea. She was given an oxycodone tab PO which she tolerated well. Patient was offered Benadryl but she declined. Patient was able to drink fluids without vomiting. She remained hemodynamically stable without hypoxia, was discharged home. Orders Ordered: ED Orders 02/17/20 12:25 Complete Blood Count AUTO DIFF Stat Comprehensive Metabolic Panel Stat Lipase Stat Discontinued Medications Diphenhydramine HCl (Benadryl) 25 mg IV NOW ONE Stop: 02/17/20 12:24 Last Admin: 02/17/20 12:43 Dose: Not Given Documented by: CHIOMA Haloperidol (Haldol) 2 mg IV Q2HR PRN PRN Reason: Vomiting Last Admin: 02/17/20 12:32 Dose: 2 mg Documented by: CHIOMA Sodium Chloride (Normal Saline 0.9%) 1,000 mls @ 1,000 mls/hr IV BOLUS ONE Stop: 02/17/20 12:56 Last Infusion: 02/17/20 14:17 Dose: 0 mls/hr Documented by: Admin: 02/17/20 12:31 Dose: 1,000 mls/hr Documented by: CHIOMA Metoclopramide HCl (Reglan) 10 mg PO NOW ONE Stop: 02/17/20 11:58 Last Admin: 02/17/20 12:43 Dose: Not Given Documented by: CHIOMA Oxycodone/Acetaminophen (Percocet 5/325) 1 tab PO NOW ONE Stop: 02/17/20 13:12 Last Admin: 02/17/20 13:26 Dose: 1 tab Documented by: BONNIE Consultations Consultation #1: Patient staffed with Dr. Gonsalez, discussed testing and pain management. Vital Signs Vital signs: Vital Signs - 8 hr 02/17/20 11:43 02/17/20 12:40 02/17/20 14:17 Temperature 97.1 F L 99.6 F Pulse Rate 95 H 82 80 Respiratory Rate 18 16 18 Blood Pressure 138/76 Blood Pressure [Right Arm] 138/89 134/74 Pulse Oximetry 99 99 96 <Caroline Gonsalez MD - Last Filed: 02/17/20 16:53> Orders Ordered: ED Orders 02/17/20 12:25 Complete Blood Count AUTO DIFF Stat Comprehensive Metabolic Panel Stat Lipase Stat Discontinued Medications Diphenhydramine HCl (Benadryl) 25 mg IV NOW ONE Stop: 02/17/20 12:24 Last Admin: 02/17/20 12:43 Dose: Not Given Documented by: CHIOMA Haloperidol (Haldol) 2 mg IV Q2HR PRN PRN Reason: Vomiting Last Admin: 02/17/20 12:32 Dose: 2 mg Documented by: CHIOMA Sodium Chloride (Normal Saline 0.9%) 1,000 mls @ 1,000 mls/hr IV BOLUS ONE Stop: 02/17/20 12:56 Last Infusion: 02/17/20 14:17 Dose: 0 mls/hr Documented by: Admin: 02/17/20 12:31 Dose: 1,000 mls/hr Documented by: CHIOMA Metoclopramide HCl (Reglan) 10 mg PO NOW ONE Stop: 02/17/20 11:58 Last Admin: 02/17/20 12:43 Dose: Not Given Documented by: CHIOMA Oxycodone/Acetaminophen (Percocet 5/325) 1 tab PO NOW ONE Stop: 02/17/20 13:12 Last Admin: 02/17/20 13:26 Dose: 1 tab Documented by: BONNIE Vital Signs Vital signs: Vital Signs - 8 hr 02/17/20 11:43 02/17/20 12:40 02/17/20 14:17 Temperature 97.1 F L 99.6 F Pulse Rate 95 H 82 80 Respiratory Rate 18 16 18 Blood Pressure 138/76 Blood Pressure [Right Arm] 138/89 134/74 Pulse Oximetry 99 99 96 MDM - Nausea/Vomiting/Diarrhea <Lydia StephenTEE - Last Filed: 02/17/20 15:28> Lab Data Result diagrams: 02/17/20 12:25 02/17/20 12:25 Labs: Lab Results 02/17/20 02/17/20 02/17/20 Range/Units 12:25 12:25 12:25 WBC 5.4 (4.5-11.0) X10^3/uL RBC 4.61 (4.0-5.2) X10^6/uL Hgb 13.4 (12.0-16.0) g/dL Hct 40.1 (36-46) % MCV 87.0 (80-100) fL MCH 29.0 (26-34) PG MCHC 33.3 (30-36) % RDW 12.7 (11.6-14.8) % Plt Count 308 (150-400) X10^3/uL Neut % (Auto) 45.9 L (50-75) % Lymph % (Auto) 42.7 H (25-40) % [place] % (Auto) 8.8 (3-14) % Eos % (Auto) 2.0 (2-4) % Baso % (Auto) 0.6 (0-2) % Neut # (Auto) 2500 (3147-9229) /uL Lymph # (Auto) 2300 (5924-5087) /uL [place] # (Auto) 500 (0-900) /uL Eos # (Auto) 100 (0-450) /uL Baso # (Auto) 0 (0-100) /uL Sodium 140 (137-145) mmol/L Potassium 5.0 (3.4-5.1) mmol/L Chloride 102 (98-107) mmol/L Carbon Dioxide 28 (22-32) mmol/L BUN 19 H (7-17) mg/dL Creatinine 0.69 (0.52-1.04) mg/dL Estimated GFR > 60.0 (>60) mL/min BUN/Creatinine Ratio 27.5 H (6-22) Glucose 97 (70-100) mg/dL Calcium 9.7 (8.4-10.2) mg/dL Total Bilirubin 0.4 (0.2-1.3) mg/dL AST 74 H (14-36) IU/L ALT 117 H (<35) IU/L Alkaline Phosphatase 79 (38-126) U/L Total Protein 8.5 H (6.3-8.2) g/dL Albumin 4.7 (3.5-5.0) g/dL Globulin 3.8 (1.7-4.1) g/dL Albumin/Globulin Ratio 1.2 (1.0-2.8) Lipase 33 (23-300) U/L Point of Care Testing Test Results Negative Urine Dip Bedside Urine Glucose Negative Bedside Urine Bilirubin - Negative Bedside Urine Ketone - Negative Urine Specific [place] 1.020 Bedside Urine Occult Blood - Negative Bedside Urine pH 6.5 Bedside Urine Protein - Negative Bedside Urine Urobilinogen - Negative Bedside Urine Nitrite - Negative Bedside Urine Leukocytes - Negative Esterase MDM Narrative Medical decision making narrative: 29-year-old female with a history of ovarian cancer he is currently in remission for the past 2 years, chronic abdominal pain, chronic vomiting presenting to the emergency department for nausea and vomiting. Patient had some episodes of shortness of breath, tested positive for COVID-19 in the emergency department, she received a call from the health department alerting her of this. Patient was hemodynamically stable, no respiratory distress, not hypoxic. Patient did not vomit during her entire stay in the emergency department. I suspect her nausea symptoms are most likely caused by narcotic withdrawal and chronic abdominal pain as she has not had a dose of oxycodone since yesterday, abdominal exam is unremarkable, and patient describes the pain as consistent with her past chronic episodes. We discussed this in detail, I suggested she may be a good candidate for Suboxone. Patient does have a pain management appointment scheduled in the next few weeks. Patient agreed to attend this appointment. Additionally, COVID-19 there illness may be contributing to her n ausea. Patient was discharged home with Phenergan suppositories per request. I suspect the slight elevation in liver enzymes a most likely due to viral infection with COVID-19 and/or recent vomiting, less suspicion for gallbladder or liver etiology due to lack of left upper quadrant pain, normal bilirubin, and no tenderness on abdominal exam. Strict return precautions were given for new or worsening symptoms. Patient agreed to plan of care verbalized understanding. <Caroline Gonsalez MD - Last Filed: 02/17/20 16:53> Lab Data Labs: Lab Results 02/17/20 02/17/20 02/17/20 Range/Units 12:25 12:25 12:25 WBC 5.4 (4.5-11.0) X10^3/uL RBC 4.61 (4.0-5.2) X10^6/uL Hgb 13.4 (12.0-16.0) g/dL Hct 40.1 (36-46) % MCV 87.0 (80-100) fL MCH 29.0 (26-34) PG MCHC 33.3 (30-36) % RDW 12.7 (11.6-14.8) % Plt Count 308 (150-400) X10^3/uL Neut % (Auto) 45.9 L (50-75) % Lymph % (Auto) 42.7 H (25-40) % Huntington % (Auto) 8.8 (3-14) % Eos % (Auto) 2.0 (2-4) % Baso % (Auto) 0.6 (0-2) % Neut # (Auto) 2500 (9009-0501) /uL Lymph # (Auto) 2300 (7622-8650) /uL Huntington # (Auto) 500 (0-900) /uL Eos # (Auto) 100 (0-450) /uL Baso # (Auto) 0 (0-100) /uL Sodium 140 (137-145) mmol/L Potassium 5.0 (3.4-5.1) mmol/L Chloride 102 (98-107) mmol/L Carbon Dioxide 28 (22-32) mmol/L BUN 19 H (7-17) mg/dL Creatinine 0.69 (0.52-1.04) mg/dL Estimated GFR > 60.0 (>60) mL/min BUN/Creatinine Ratio 27.5 H (6-22) Glucose 97 (70-100) mg/dL Calcium 9.7 (8.4-10.2) mg/dL Total Bilirubin 0.4 (0.2-1.3) mg/dL AST 74 H (14-36) IU/L ALT 117 H (<35) IU/L Alkaline Phosphatase 79 (38-126) U/L Total Protein 8.5 H (6.3-8.2) g/dL Albumin 4.7 (3.5-5.0) g/dL Globulin 3.8 (1.7-4.1) g/dL Albumin/Globulin Ratio 1.2 (1.0-2.8) Lipase 33 (23-300) U/L Point of Care Testing Test Results Negative Urine Dip Bedside Urine Glucose Negative Bedside Urine Bilirubin - Negative Bedside Urine Ketone - Negative Urine Specific [place] 1.020 Bedside Urine Occult Blood - Negative Bedside Urine pH 6.5 Bedside Urine Protein - Negative Bedside Urine Urobilinogen - Negative Bedside Urine Nitrite - Negative Bedside Urine Leukocytes - Negative Esterase Discharge Plan Departure Patient Disposition: Home Clinical Impression: Nausea & vomiting Qualifiers: Vomiting type: unspecified Vomiting Intractability: unspecified Qualified Code(s): R11.2 - Nausea with vomiting, unspecified Discharge Date/Time: 02/17/20 14:18 Instructions: DI for Nausea -- Adult, Can COVID-19 be prevented? Activity Restrictions/Additional Instructions: Thank you for entrusting me with your care today. As discussed, your laboratory work is non-remarkable. I have given you Phenergan suppositories to help with nausea. [facility] was [facility] to [facility] in [place]. I recommend following up with pain management as scheduled to discuss a plan of care, you may possibly be a candidate for Suboxone. *You have been diagnosed with COVID-19. *What to do: * per recommendations from the CDC and the [facility] Department of Health * stay home except to get medical care. Restrict activities outside your home, except for getting medical care. Do not go to work, school, or public areas. Avoid using public transportation, ride sharing, or taxis. * separate yourself from other people in your home. * call ahead before visiting your doctor * Wear a face mask * Cover your coughs and sneezes * Clean your hands often * Avoid sharing household items * Clean all high-touch services every day * Monitor your symptoms and seek prompt medical attention if your illness is worsening, particularly with difficulty in breathing. Discussed continuing home isolation * for individuals with symptoms who are confirmed or suspected cases of COVID-19 and are directed to care for themselves at home, discontinue home isolation under the following conditions: 1. At least 72 hours have passed since recovery, defined as resolution of fever without the use of fever reducing medications, and improvement in respiratory symptoms (cough, shortness of breath) AND, 2. At least 7 days have passed since symptoms 1st appeared Individuals with laboratory confirmed COVID-19 who have not had any symptoms may discontinue home isolation when at least 7 days have passed since the date of their 1st COVID-19 diagnostic test and have had no subsequent illness Return to the emergency department for any new or worsening symptoms such as significant shortness of breath, severe pain, uncontrollable vomiting, high fevers, or any other concerns. Prescriptions: New promethazine 25 mg suppository 25 mg OR Q4-6H PRN (Reason: Nausea vomiting) Qty: 12 RF: 0 No Action prochlorperazine maleate 5 mg tablet 5 mg PO Q8H PRN (Reason: nausea and vomiting) Qty: 20 RF: 3 acetaminophen 650 mg tablet extended release 650 mg PO QID Qty: 120 RF: 1 lidocaine 5 % adhesive patch,medicated 1 patch TOP DAILY Qty: 30 RF: 3 famotidine 40 mg tablet 40 mg PO BID Qty: 60 RF: 11 prochlorperazine 25 mg suppository 25 mg OR Q12H PRN (Reason: nausea and vomiting) Qty: 20 RF: 3 bupropion HCl 300 mg tablet extended release 24 hr 300 mg PO QAM Qty: 30 RF: 0 olanzapine 10 mg tablet 10 mg PO BEDTIME Qty: 30 RF: 0 hydroxyzine pamoate 25 mg capsule See Rx Instructions PO TID PRN (Reason: anxiety) Qty: 90 RF: 0 lamotrigine 200 mg tablet See Rx Instructions .ROUTE .COMPLEX Qty: 30 RF: 0 olanzapine 5 mg tablet See Rx Instructions PO DAILY Qty: 60 RF: 0 oxycodone-acetaminophen 5-325 mg tablet 1 tab PO TID PRN (Reason: pain) Qty: 90 RF: 0 Referrals: Justa Hamilton MD [Primary Care Provider] - <Caroline Gonsalez MD - Last Filed: 02/17/20 16:53> Cosign ED Attending Cosaleishaature Attestation: I was immediately available in the department for consultation throughout this patient's visit. I agree with documentation as above. Caroline Gonsalez MD
[2020-02-17] MEDS: SODIUM CHLORIDE 0.9% 1,000 ML 1000 ML IV (12:31)
[2020-02-17] MEDS: HALOPERIDOL 5 MG/ML VIAL 2 MG IV (12:32)
[2020-02-17 12:33] LABS: Add Manual Diff / Slide Review NO; Basophils Absolute Auto 0 /uL (0-100); Basophils Percent Auto 0.6 % (0-2); Eosinophils Absolute Auto 100 /uL (0-450); Hematocrit 40.1 % (36-46); Hemoglobin 13.4 g/dL (12.0-16.0); Lymphocytes Absolute Auto 2300 /uL (1100-4500); Lymphocytes Percent Auto 42.7 % (25-40); Mean Corpuscular HGB Conc 33.3 % (30-36); Monocytes Absolute Auto 500 /uL (0-900); Monocytes Percent Auto 8.8 % (3-14); Neutrophils Absolute Auto 2500 /uL (1500-7000); Neutrophils Percent Auto 45.9 % (50-75); Platelet Count 308 X10^3/uL (150-400); Red Blood Cell Count 4.61 X10^6/uL (4.0-5.2); Red Cell Distribution Width 12.7 % (11.6-14.8); White Blood Cell Count 5.4 X10^3/uL (4.5-11.0)
[2020-02-17 12:40] VITALS: BP 138/89; PULSE 82; RESP 16; TEMP 37.6; O2SAT 99
[2020-02-17 12:45] LABS: Alanine Aminotransferase 117 IU/L (<35); Albumin 4.7 g/dL (3.5-5.0); Albumin Globulin Ratio 1.2 (1.0-2.8); Alkaline Phosphatase 79 U/L (38-126); Aspartate Aminotransferase 74 IU/L (14-36); BUN Creatinine Ratio 27.5 (6-22); Bilirubin Total 0.4 mg/dL (0.2-1.3); Blood Urea Nitrogen 19 mg/dL (7-17); Calcium 9.7 mg/dL (8.4-10.2); Carbon Dioxide 28 mmol/L (22-32); Chloride 102 mmol/L (98-107); Estimated Glomerular Filt Rate > 60.0 mL/min (>60); Globulin 3.8 g/dL (1.7-4.1); Glucose 97 mg/dL (70-100); HEMOLYSIS 39 (0-50); Sodium 140 mmol/L (137-145); Total Protein 8.5 g/dL (6.3-8.2)
[2020-02-17 12:49] LABS: Lipase 33 U/L (23-300)
--- NOTE | 2020-02-17 13:00 | PC.NURSE ---
Patient refusing benadryl, stating that it makes me really sleepy and the last time I had the benadryl, they couldn't wake me up. Notified provider. No new orders at this time.
--- NOTE | 2020-02-17 13:16 | PC.NURSE ---
pt received call from health department while in ED that she is confirmed POSITIVE COVID-19. Proper precautions placed.
[2020-02-17] MEDS: OXYCODONE/ACETAMINOPHEN 5/325 TABLET 1 TAB PO (13:26)
--- NOTE | 2020-02-17 13:35 | PC.NURSE ---
1300 Late entry: patient up to bathroom without difficulty to void. Urine specimen collected. Patient states that medication is not working and that she is still nauseated and having pain. Patient states she last took her oxycodone yesterday but has not had any today due to two episodes of emesis and continued nausea. Patient has not had any emesis since arrival to ER. Notified provider of findings.
[2020-02-17 14:17] VITALS: BP 134/74; PULSE 80; RESP 18; O2SAT 96
== END 2020-02-17 14:18 | disposition home or self-care (01) ==
PROVIDERS: Emergency Provider Nurse Practitioner; PCP Family Medicine
DX: R11.2 Nausea with vomiting, unspecified (principal); U07.1 COVID-19
CPT/HCPCS: 36415; 80053; 81003; 81025; 83690; 85025; 96361; 96374; 99284; J1630

== ENCOUNTER → 2020-06-12 10:43 | Outpatient (CLI) | payer OTHER, MEDICAID, SELFPAY ==
--- NOTE | 2020-06-12 10:44 | DI.US.S_ITS ---
PROCEDURE: US PELVIC COMPLETE INDICATIONS: IUD PLACEMENT TECHNIQUE: Real-time scanning was performed of the pelvic organs, with image documentation. Additional endovaginal scanning was necessary due to incomplete visualization of the adnexal and endometrial structures by transabdominal scanning. COMPARISON: [facility], CT, CT ABDOMEN PELVIS W CON, 03/16/2018, 14:05. [facility], US, PELVIC COMPLETE, 08/24/2017, 20:48. FINDINGS: Transabdominal scanning: Limited scanning through the kidneys shows no hydronephrosis. No pathologic free abdominal or pelvic fluid. Endovaginal scanning: Uterus: Uterus is retroverted and normal in size at 5.2 x 5.1 x 4.2 cm. No uterine mass. The endometrium measures 7 mm in combined thickness. No IUD identified. Ovaries: Right ovary is not seen. Left ovary is within normal limits and measures 1.7 x 1.1 x 1.1 cm. IMPRESSION: 1. No IUD identified and is presumably absent. If clinically indicated pelvic radiograph could be performed. 2. No free fluid. 3. Normal sonographic appearance of the uterus and left ovary. Right ovary is not seen. Preliminary results were called to Dr. Hamilton at 11:17 a.m. Dictated by: David Wade M.D. on 06/12/2020 at 12:29 Approved by: David Wade M.D. on 06/12/2020 at 12:34
== END ==
PROVIDERS: PCP Family Medicine; Referring Provider Family Medicine; Visit Provider Family Medicine
DX: T83.32XA Displacement of intrauterine contraceptive device, initial encounter (principal)
CPT/HCPCS: 76830; 76856

== ENCOUNTER 2021-11-18 10:37 | Emergency (ER) | payer OTHER, MEDICAID, SELFPAY ==
[2021-11-18 10:40] VITALS: BP 137/88; PULSE 94; RESP 15; TEMP 36.9; O2SAT 100; BMI 47.5
--- NOTE | 2021-11-18 14:02 | CM.SWNOTE ---
Addendum entered by Elda Mclaughlin 11/18/21 15:37: PENSION CONSULTANT Note PENSION CONSULTANT also informs Dr. Hamilton's office AFM regarding patient's presentation to the ED. LINDEN Castro Original Note: PENSION CONSULTANT Assessment Note PENSION CONSULTANT receives consult and enters room to meet with patient. Patient is 31 y/o female who presents to the ED for concern for dizziness, migraines and hx of concussions. Patient is A/Ox4 and reports that she hit her head and cut it open in August and it happen again two weeks ago as well. Patient endorses that she is tired and spends most of her time laying down. Patient endorses that she has close f/u with PCP Dr. Hamilton and has an upcoming PCP appt. Patient endorses that she is a patient of Psychiatrist Dr. Ayala and endorses consent that PENSION CONSULTANT can inform Dr. Ayala of patient's presentation to the ED. Patient endorses ongoing counseling sessions with [facility] and ongoing appts at [facility]. Patient denies life stressors, states she is doing fine and states her medications are working well. Patient denies HI and SI. Patient endorses she feels safe at home and resides with family. Patient declines further support or resources from PENSION CONSULTANT and offers further services as needed. PENSION CONSULTANT reviews the above with ED provider PRAKASH Hernández. PENSION CONSULTANT calls Psychiatrist Dr. Ayala and leaves regarding patient's presentation to the ED. Plan: Patient to d/c to home when medically clear. LINDEN Castro
[2021-11-18 14:36] LABS: Basophils Absolute Auto 0 /uL (0-100); Basophils Percent Auto 0.3 % (0-2); Eosinophils Absolute Auto 100 /uL (0-450); Eosinophils Percent Auto 1.2 % (2-4); Mean Corpuscular HGB Conc 32.6 % (30-36); Mean Corpuscular Hemoglobin 25.6 PG (26-34); Mean Corpuscular Volume 78.5 fL (80-100); Red Cell Distribution Width 14.9 % (11.6-14.8)
[2021-11-18 14:42] LABS: Add Manual Diff / Slide Review NO; Hematocrit 35.7 % (36-46); Hemoglobin 11.7 g/dL (12.0-16.0); Lymphocytes Absolute Auto 3300 /uL (1100-4500); Lymphocytes Percent Auto 38.3 % (25-40); Monocytes Absolute Auto 500 /uL (0-900); Monocytes Percent Auto 5.3 % (3-14); Neutrophils Absolute Auto 4800 /uL (1500-7000); Neutrophils Percent Auto 54.9 % (50-75); Platelet Count 370 X10^3/uL (150-400); Red Blood Cell Count 4.55 X10^6/uL (4.0-5.2); White Blood Cell Count 8.7 X10^3/uL (4.5-11.0)
[2021-11-18 14:49] LABS: Alanine Aminotransferase 58 IU/L (<35); Albumin 4.5 g/dL (3.5-5.0); Albumin Globulin Ratio 1.1 (1.0-2.8); Alkaline Phosphatase 86 U/L (38-126); Aspartate Aminotransferase 50 IU/L (14-36); BUN Creatinine Ratio 19.7 (6-22); Bilirubin Total 0.3 mg/dL (0.2-1.3); Blood Urea Nitrogen 14 mg/dL (7-17); Calcium 9.6 mg/dL (8.4-10.2); Carbon Dioxide 34 mmol/L (22-32); Chloride 99 mmol/L (98-107); Estimated Glomerular Filt Rate > 60.0 mL/min (>60); Glucose 97 mg/dL (70-100); HEMOLYSIS < 15 (0-50); Potassium 4.3 mmol/L (3.4-5.1); Sodium 140 mmol/L (137-145); Total Protein 8.5 g/dL (6.3-8.2)
--- NOTE | 2021-11-18 14:50 | DI.CT.S_ITS ---
PROCEDURE: CT HEAD/BRAIN WO CON INDICATIONS: dizzy, mult head injuries TECHNIQUE: Noncontrast 4.5 mm thick angled axial sections acquired from the foramen magnum to the vertex, with coronal and sagittal reformats. For radiation dose reduction, the following was used: automated exposure control, adjustment of mA and/or kV according to patient size. COMPARISON: None. FINDINGS: Image quality: Excellent. CSF spaces: Basal cisterns are patent. No extra-axial fluid collections. Ventricles are normal in size and shape. Brain: No midline shift. No intracranial masses or hemorrhage. Flores-white matter interface is normal. Skull and face: Calvarium and visualized facial bones are intact, without suspicious lesions. Sinuses: Visualized sinuses and mastoids are clear. IMPRESSION: No acute intracranial abnormality. Dictated by: Dexter Markham M.D. on 11/18/2021 at 14:59 Approved by: Dexter Markham M.D. on 11/18/2021 at 15:00
[2021-11-18 14:53] LABS: UR Morphine/Opiate cutoff 300 Negative (Negative); Ur Creatinine Normal (Normal); Ur Specific Gravity Normal (Normal); Urine Amphetamines Negative (Negative); Urine Barbiturates Negative (Negative); Urine Benzodiazepines Positive (Negative); Urine Cocaine Negative (Negative); Urine MDMA Negative (Negative); Urine Methadone Negative (Negative); Urine Methamphetamines Negative (Negative); Urine Oxycodone Negative (Negative); Urine Phencyclidine Negative (Negative); Urine Tetrahydrocannabinol Negative (Negative); Urine Tricyclic Antidepressant Negative (Negative); Urine pH Normal (Normal)
[2021-11-18 15:37] VITALS: BP 136/77; PULSE 75; RESP 18; O2SAT 100
--- NOTE | 2021-11-18 16:43 | ED_ITS ---
HPI - Dizziness <Leanne Vidal, AVIATION MEDICINE SPECIALIST-BC - Last Filed: 11/18/21 16:53> General Chief Complaint: Dizziness Stated Complaint: dizzy, migraines- hx of concussions Time Seen by Provider: 11/18/21 12:07 Source: patient Mode of arrival: Ambulatory History of Present Illness HPI Narrative: The patient is a 31-year-old female current everyday smoker with history of bipolar 1 disorder, PTSD, granulosa cell tumor of right ovary, opioid use, who presents with a chief complaint of a possible head injury. She states she had a concussion after hitting her head on an RV ceiling 2 months ago, then she hit her head again 2 weeks ago on the RV again. She states she is not sure whether not she lost consciousness, got very dizzy and needed to lay down. She complains of head pervasive headache, dizziness, lightheadedness and fatigue since her 2nd injury. She states that her primary care provider is working to refer her to Neurology, and she was sent to the emergency department ?for a head scan.? She clarifies that the dizziness is been ongoing for several months, she has had increasing anxiety and panic attacks. She denies any nausea vomiting or diarrhea. She is unsure of status, as she has a history of PCOS and irregular menstrual cycles. Related Data Home Medications Medication Instructions Recorded Confirmed buprenorphine 8 mg-naloxone 2 mg See Rx Instructions .ROUTE .COMPLEX 05/09/20 10/01/21 sublingual film (Suboxone) lidocaine 5 % topical patch 1 patch TOP DAILY PRN each 10/01/21 nystatin 100,000 unit/gram topical 1 applic TOPICAL TID PRN g 10/01/21 ointment Previous Rx's Medication Instructions Recorded tretinoin 0.05 % topical gel 1 applic TOPICAL BEDTIME #135 g 12/03/20 promethazine 12.5 mg rectal See Rx Instructions .ROUTE 07/15/21 suppository (Promethegan) .COMPLEX #12 suppository promethazine 12.5 mg tablet See Rx Instructions .ROUTE 07/15/21 .COMPLEX #42 tablet lamotrigine 100 mg tablet See Rx Instructions PO BEDTIME #60 09/24/21 tab lamotrigine 25 mg tablet 25 mg PO BEDTIME #42 tab 09/24/21 polyethylene glycol 3350 17 17 g PO DAILY PRN #119 g 11/29/21 gram/dose oral powder (Miralax) fluconazole 150 mg tablet 150 mg PO Q3D PRN #2 tab 10/17/21 diazepam 5 mg tablet 5 mg PO .COMPLEX #90 tab MDD 20MG 10/28/21 (4 pills) famotidine 40 mg tablet See Rx Instructions .ROUTE 11/20/21 .COMPLEX #60 tab Allergies Allergy/AdvReac Type Severity Reaction Status Date / Time ketorolac [From Toradol] Allergy Intermediate Verified 11/18/21 10:45 aripiprazole [From ABILIFY] Allergy Mild MOOD SWINGS Verified 11/18/21 10:45 ethinyl estradiol Allergy Mild ITCHING Verified 11/18/21 10:45 [From NUVARING] etonogestrel [From NUVARING] Allergy Mild ITCHING Verified 11/18/21 10:45 hydrocodone [HYDROCODONE] Allergy Mild ITCHING Verified 11/18/21 10:45 tramadol [TRAMADOL] Allergy Mild ITCHING Verified 11/18/21 10:45 morphine AdvReac Intermediate Headache Verified 11/18/21 10:45 Review of Systems <PRAKASH Hernández - Last Filed: 11/18/21 16:53> Review of Systems Narrative: GENERAL: See HPI HEENT: Denies sinus pain, ear pain, sore throat, difficulty swallowing, dizziness. RESPIRATORY: Denies dyspnea, cough, wheezing, hemoptysis, sputum. CARDIOVASCULAR: Denies chest pain, palpitations, orthopnea, edema, GASTROINTESTINAL: Denies nausea, vomiting, abdominal pain, diarrhea, constipation, melena. : Denies dysuria, frequency, incontinence, hematuria, urinary retention. MUSCULOSKELETAL: denies weakness, joint pain, or bony pain SKIN: Denies rash, skin lesions, or other NEUROLOGIC: See HPI PSYCHIATRIC: See HPI 12 point review of systems is negative except for those stated above Patient History <PRAKASH Hernández - Last Filed: 11/18/21 16:53> Medical History Bipolar 1 disorder Depression Distal paresthesia Ear infection Menometrorrhagia Migraines Port-a-cath in place PTSD (post-traumatic stress disorder) Urinary leakage Surgical History History of wisdom tooth extraction Hx of tonsillectomy Hx of unilateral salpingectomy Social History household members: spouse Smoking Status: Current every day smoker Smoking Status: Current every day smoker alcohol intake frequency: holidays/special occasions only Substance Use Type: does not use Exam <JOSSE Hernández-BC - Last Filed: 11/18/21 16:53> Narrative Exam Narrative: GENERAL: This is a well-nourished, well-developed patient, in no acute distress HEAD: Atraumatic. Normocephalic. No temporal or scalp tenderness. EYES: Pupils equal round and reactive. Extraocular motions intact. No scleral icterus. No injection or drainage. ENT: Nose without bleeding, purulent drainage or septal hematoma. Throat without erythema, tonsillar hypertrophy or exudate. Uvula midline. Airway patent. NECK: Trachea midline. No JVD or lymphadenopathy. Supple, nontender, no meningeal signs. CARDIOVASCULAR: Regular rate and rhythm RESPIRATORY: Clear to auscultation. Breath sounds equal bilaterally. No wheezes, rales, or rhonchi. No cough. No increased respiratory effort. No accessory muscle use. GASTROINTESTINAL: Abdomen soft, non-tender, nondistended. No hepato- splenomegaly, or palpable masses. No guarding. EXTREMITIES: No clubbing, cyanosis, or edema. No joint tenderness, effusion, or edema noted. BACK: Nontender without deformity or crepitance. No flank tenderness. NEURO: AOx3. Flat affect. Appears sleepy, falling asleep frequently. SKIN: No rash or erythema. Initial Vital Signs Initial Vital Signs: Vital Signs Temperature 98.4 F 11/18/21 10:40 Pulse Rate 94 H 11/18/21 10:40 Respiratory Rate 15 11/18/21 10:40 Blood Pressure 137/88 11/18/21 10:40 Pulse Oximetry 100 11/18/21 10:40 <Js Hernandez MD - Last Filed: 11/24/21 12:15> Initial Vital Signs Initial Vital Signs: Vital Signs Temperature 98.4 F 11/18/21 10:40 Pulse Rate 94 H 11/18/21 10:40 Respiratory Rate 15 11/18/21 10:40 Blood Pressure 137/88 11/18/21 10:40 Pulse Oximetry 100 11/18/21 10:40 Scores <PRAKASH Hernández - Last Filed: 11/18/21 16:53> GCS Roosevelt coma scale eye opening: Spontaneous Eduard coma scale verbal response: Orientated Eduard coma scale motor response: Obey commands Roosevelt coma scale total score: 15 <Js Hernandez MD - Last Filed: 11/24/21 12:15> GCS Roosevelt coma scale total score: 15 Course <PRAKASH Hernández - Last Filed: 11/18/21 16:53> Orders Ordered: ED Orders 11/18/21 12:32 Consult to [facility] Stem Lead Former Stat 11/18/21 13:12 EKG-12 Lead Stat 11/18/21 14:10 Urine Drug Screen, Rapid Stat 11/18/21 14:15 CBC Auto Diff [Complete Blood Count AUTO DIFF] Stat CMP [Comprehensive Metabolic Panel] Stat Magnesium Stat 11/18/21 14:50 CT head/brain wo con Stat Vital Signs Vital signs: Vital Signs - 8 hr 11/18/21 10:40 11/18/21 15:37 Temperature 98.4 F Pulse Rate 94 H 75 Respiratory Rate 15 18 Blood Pressure 137/88 136/77 Pulse Oximetry 100 100 <Js Hernandez MD - Last Filed: 11/24/21 12:15> Orders Ordered: ED Orders 11/18/21 12:32 Consult to [facility] Stem Lead Former Stat 11/18/21 13:12 EKG-12 Lead Stat 11/18/21 14:10 Urine Drug Screen, Rapid Stat 11/18/21 14:15 CBC Auto Diff [Complete Blood Count AUTO DIFF] Stat CMP [Comprehensive Metabolic Panel] Stat Magnesium Stat 11/18/21 14:50 CT head/brain wo con Stat Vital Signs Vital signs: Vital Signs - 8 hr 11/18/21 10:40 11/18/21 15:37 Temperature 98.4 F Pulse Rate 94 H 75 Respiratory Rate 15 18 Blood Pressure 137/88 136/77 Pulse Oximetry 100 100 MDM - Dizziness <PRAKASH Hernández - Last Filed: 11/18/21 16:53> Lab Data Attestation: I reviewed the patient's lab results. Result diagrams: 11/18/21 14:15 11/18/21 14:15 Labs: Lab Results 11/18/21 11/18/21 11/18/21 Range/Units 14:10 14:15 14:15 WBC 8.7 (4.5-11.0) X10^3/uL RBC 4.55 (4.0-5.2) X10^6/uL Hgb 11.7 L (12.0-16.0) g/dL Hct 35.7 L (36-46) % MCV 78.5 L (80-100) fL MCH 25.6 L (26-34) PG MCHC 32.6 (30-36) % RDW 14.9 H (11.6-14.8) % Plt Count 370 (150-400) X10^3/uL Neut % (Auto) 54.9 (50-75) % Lymph % (Auto) 38.3 (25-40) % [place] % (Auto) 5.3 (3-14) % Eos % (Auto) 1.2 L (2-4) % Baso % (Auto) 0.3 (0-2) % Neut # (Auto) 4800 (6106-7050) /uL Lymph # (Auto) 3300 (3505-5244) /uL [place] # (Auto) 500 (0-900) /uL Eos # (Auto) 100 (0-450) /uL Baso # (Auto) 0 (0-100) /uL Sodium 140 (137-145) mmol/L Potassium 4.3 (3.4-5.1) mmol/L Chloride 99 (98-107) mmol/L Carbon Dioxide 34 H (22-32) mmol/L BUN 14 (7-17) mg/dL Creatinine 0.71 (0.52-1.04) mg/dL Estimated GFR > 60.0 (>60) mL/min BUN/Creatinine Ratio 19.7 (6-22) Glucose 97 (70-100) mg/dL Calcium 9.6 (8.4-10.2) mg/dL Magnesium 2.0 (1.6-2.3) mg/dL Total Bilirubin 0.3 (0.2-1.3) mg/dL AST 50 H (14-36) IU/L ALT 58 H (<35) IU/L Alkaline Phosphatase 86 (38-126) U/L Total Protein 8.5 H (6.3-8.2) g/dL Albumin 4.5 (3.5-5.0) g/dL Globulin 4.0 (1.7-4.1) g/dL Albumin/Globulin Ratio 1.1 (1.0-2.8) U Opiates 300ng/mL cut Negative (Negative) Ur Oxycodone Screen Negative (Negative) Urine Methadone Screen Negative (Negative) Ur Barbiturates Screen Negative (Negative) U Tricyclic Antidepress Negative (Negative) Ur Phencyclidine Scrn Negative (Negative) Ur Amphetamines Screen Negative (Negative) U Methamphetamines Scrn Negative (Negative) Ur MDMA Scrn (Ecstasy) Negative (Negative) U Benzodiazepines Scrn Positive H (Negative) Urine Cocaine Screen Negative (Negative) U Marijuana (THC) Screen Negative (Negative) Point of Care Testing Test Results Negative Urine Dip Bedside Urine Glucose Negative Bedside Urine Bilirubin - Negative Bedside Urine Ketone - Negative Urine Specific [place] 1.020 Bedside Urine Occult Blood - Negative Bedside Urine pH 6.0 Bedside Urine Protein - Negative Bedside Urine Urobilinogen - Negative Bedside Urine Nitrite - Negative Bedside Urine Leukocytes - Negative Esterase Imaging Data CT scan - head: Radiologist's Impression: [address] [place] [address] CT Scan Report Signed Patient: Tim Martinez MR#: [id number] : 1990 Acct:[id number] Age/Sex: 31 / F Date of Service: 11/18/21 Loc: Accession Number: [id number] ?? Procedure: CT head/brain wo con Ordering Provider: Leanne Vidal [facility] PROCEDURE:? CT HEAD/BRAIN WO CON ? INDICATIONS:? dizzy, mult head injuries ? TECHNIQUE:? Noncontrast 4.5 mm thick angled axial sections acquired from the foramen magnum to the vertex, with coronal and sagittal reformats.? For radiation dose reduction, the following was used:? automated exposure control, adjustment of mA and/or kV according to patient size.? ? COMPARISON:? None. ? FINDINGS:? Image quality:? Excellent.? ? CSF spaces:? Basal cisterns are patent.? No extra-axial fluid collections.? Ventricles are normal in size and shape.? ? Brain:? No midline shift.? No intracranial masses or hemorrhage.? Flores-white matter interface is normal.? ? Skull and face:? Calvarium and visualized facial bones are intact, without suspicious lesions.? ? Sinuses:? Visualized sinuses and mastoids are clear.? ? IMPRESSION:? No acute intracranial abnormality. ? ? Dictated by: Dexter Markham M.D. on 11/18/2021 at 14:59 ? ? Approved by: Dexter Markham M.D. on 11/18/2021 at 15:00 ? ECG Data Attestation: I personally reviewed and interpreted this ECG as follows: Interpretation: Sinus rhythm. Ventricular rate 81. P.r. interval 180. viewed by Dr Hernandez MDM Narrative Medical decision making narrative: The patient is a 31-year-old female with a complex medical history who presents with a chief complaint of chronic headaches and dizziness ongoing for the past months. Given the duration of symptoms, combined with the fact that the patient was falling asleep during the exam, I did get a head CT which showed no acute findings. Also obtain basic labs which showed no acute findings, negative, and patient was offered social work consult during her stay in the ER given her worsening anxiety etcetera. The patient did not want to speak with her social security specialist. I did discuss at length with her the possibility of postconcussive syndrome and gave her educational regarding this. I encouraged her to follow up with her primary care provider as well as her care team. The patient has been cooperative throughout her stay in the ER, nontoxic and well-appearing. Patient has no questions or concerns upon discharge states understanding of return precautions as well as follow-up care. <Js Hernandez MD - Last Filed: 11/24/21 12:15> Lab Data Labs: Lab Results 11/18/21 11/18/21 11/18/21 Range/Units 14:10 14:15 14:15 WBC 8.7 (4.5-11.0) X10^3/uL RBC 4.55 (4.0-5.2) X10^6/uL Hgb 11.7 L (12.0-16.0) g/dL Hct 35.7 L (36-46) % MCV 78.5 L (80-100) fL MCH 25.6 L (26-34) PG MCHC 32.6 (30-36) % RDW 14.9 H (11.6-14.8) % Plt Count 370 (150-400) X10^3/uL Neut % (Auto) 54.9 (50-75) % Lymph % (Auto) 38.3 (25-40) % [place] % (Auto) 5.3 (3-14) % Eos % (Auto) 1.2 L (2-4) % Baso % (Auto) 0.3 (0-2) % Neut # (Auto) 4800 (0093-0661) /uL Lymph # (Auto) 3300 (5309-7000) /uL [place] # (Auto) 500 (0-900) /uL Eos # (Auto) 100 (0-450) /uL Baso # (Auto) 0 (0-100) /uL Sodium 140 (137-145) mmol/L Potassium 4.3 (3.4-5.1) mmol/L Chloride 99 (98-107) mmol/L Carbon Dioxide 34 H (22-32) mmol/L BUN 14 (7-17) mg/dL Creatinine 0.71 (0.52-1.04) mg/dL Estimated GFR > 60.0 (>60) mL/min BUN/Creatinine Ratio 19.7 (6-22) Glucose 97 (70-100) mg/dL Calcium 9.6 (8.4-10.2) mg/dL Magnesium 2.0 (1.6-2.3) mg/dL Total Bilirubin 0.3 (0.2-1.3) mg/dL AST 50 H (14-36) IU/L ALT 58 H (<35) IU/L Alkaline Phosphatase 86 (38-126) U/L Total Protein 8.5 H (6.3-8.2) g/dL Albumin 4.5 (3.5-5.0) g/dL Globulin 4.0 (1.7-4.1) g/dL Albumin/Globulin Ratio 1.1 (1.0-2.8) U Opiates 300ng/mL cut Negative (Negative) Ur Oxycodone Screen Negative (Negative) Urine Methadone Screen Negative (Negative) Ur Barbiturates Screen Negative (Negative) U Tricyclic Antidepress Negative (Negative) Ur Phencyclidine Scrn Negative (Negative) Ur Amphetamines Screen Negative (Negative) U Methamphetamines Scrn Negative (Negative) Ur MDMA Scrn (Ecstasy) Negative (Negative) U Benzodiazepines Scrn Positive H (Negative) Urine Cocaine Screen Negative (Negative) U Marijuana (THC) Screen Negative (Negative) Point of Care Testing Test Results Negative Urine Dip Bedside Urine Glucose Negative Bedside Urine Bilirubin - Negative Bedside Urine Ketone - Negative Urine Specific [place] 1.020 Bedside Urine Occult Blood - Negative Bedside Urine pH 6.0 Bedside Urine Protein - Negative Bedside Urine Urobilinogen - Negative Bedside Urine Nitrite - Negative Bedside Urine Leukocytes - Negative Esterase Discharge Plan Departure Patient Disposition: Home Clinical Impression: Post concussive syndrome, Dizziness Instructions: DI for Postconcussion Syndrome, DI for Dizziness-Nonvertigo Activity Restrictions/Additional Instructions: Thank you for trusting us with your care today. As discussed your workup came back largely normal. Your dizziness etcetera could be part of postconcussion syndrome. I have included a packet regarding this. Please rest and push fluids. Please rest yo ur brain. Please take care to avoid further head injuries. Also please follow-up with primary care provider in the next few days. Please come back to the emergency department for any acute concerns. Prescriptions: No Action buprenorphine-naloxone [Suboxone] 8-2 mg film See Rx Instructions .ROUTE .COMPLEX 0RF Rx Instructions: 1 film buccal in the morning and 1/2 film in the evening lamotrigine 25 mg tablet 25 mg PO BEDTIME Qty: 42 0RF Rx Instructions: Take 1 tab daily x2wk, then 2 tabs daily x2wk. Call clinic with any concerns about rash. lamotrigine 100 mg tablet See Rx Instructions PO BEDTIME Qty: 60 1RF Rx Instructions: Start after completing 25mg pills. Take 1 tab for 1 week then increase to 2 tabs QHS PO bedtime. lidocaine 5 % adhesive patch,medicated 1 patch TOP DAILY PRN0RF Rx Instructions: leave on most painful area for 12 hrs nystatin 100,000 unit/gram ointment 1 applic topical TID PRN0RF tretinoin 0.05 % gel 1 applic topical BEDTIME Qty: 135 3RF promethazine [Promethegan] 12.5 mg suppository See Rx Instructions .ROUTE .COMPLEX Qty: 12 0RF Dose Instruction: UNWRAP AND INSERT 1 SUPPOSITORY RECTALLY 1 TIME NEEDED FOR NAUSEA OR VOMITING Rx Instructions: UNWRAP AND INSERT 1 SUPPOSITORY RECTALLY 1 TIME NEEDED FOR NAUSEA OR VOMITING promethazine 12.5 mg tablet See Rx Instructions .ROUTE .COMPLEX Qty: 42 0RF Dose Instruction: TAKE 1 TABLET BY MOUTH EVERY 8 TO 12 HOURS NEEDED FOR NAUSEA FOR 14 DAYS Rx Instructions: TAKE 1 TABLET BY MOUTH EVERY 8 TO 12 HOURS NEEDED FOR NAUSEA FOR 14 DAYS polyethylene glycol 3350 [Miralax] 17 gram/dose powder 17 g PO DAILY PRN (Reason: constipation) Qty: 119 1RF fluconazole 150 mg tablet 150 mg PO Q3D PRN (Reason: vaginal yeast infection ) Qty: 2 0RF Rx Instructions: may repeat second dose 72 hrs after first dose if symptoms persist diazepam 5 mg tablet 5 mg PO .COMPLEX MDD 20MG (4 pills) Qty: 90 0RF Rx Instructions: 5 mg PO BID scheduled; ok to take additional 5mg BID prn panic; please fill on or after 10/01/21 famotidine 40 mg tablet See Rx Instructions .ROUTE .COMPLEX Qty: 60 0RF Hold Instructions: med change due to insurance coverage Dose Instruction: TAKE 1 TABLET BY MOUTH TWICE DAILY Rx Instructions: TAKE 1 TABLET BY MOUTH TWICE DAILY Referrals: Justa Hamilton MD [Primary Care Provider] - <Js Hernandez MD - Last Filed: 11/24/21 12:15> Cosign ED Attending Cosignature Attestation: I was immediately available in the department for consultation. This documentation has been reviewed and I agree with assessment and plan. Supervised by Js Hernandez MD
== END 2021-11-18 15:38 | disposition home or self-care (01) ==
PROVIDERS: Emergency Provider Nurse Practitioner Family; PCP Family Medicine
DX: F07.81 Postconcussional syndrome (principal); R42 Dizziness and giddiness
CPT/HCPCS: 70450; 80053; 80305; 81003; 81025; 83735; 85025; 93005; 93010; 99284

== ENCOUNTER → 2022-03-19 13:46 | Outpatient (CLI) | payer OTHER, MEDICAID, SELFPAY ==
--- NOTE | 2022-03-19 13:47 | DI.CT.S_ITS ---
PROCEDURE: CT CHEST ABD PEL W CON INDICATIONS: ovarian tumor, stromal TECHNIQUE: After the administration of oral and intravenous contrast, axial sections acquired from the supraclavicular neck to the pubic symphysis. Coronal and sagittal reformats were performed. For radiation dose reduction, the following was used: automated exposure control, adjustment of mA and/or kV according to patient size. COMPARISON: [facility], CT, CT ABDOMEN PELVIS W CON, 03/16/2018, 14:05. FINDINGS: Image quality: Excellent. CHEST: Lower Neck: No enlarged lymph nodes. Thyroid: Within normal limits. Axillae: No enlarged lymph nodes. Chest Wall: Unremarkable. Lungs and Airways: No consolidation or suspicious nodules. Pleura: No pneumothorax or pleural effusions. Heart: Heart size is normal. No pericardial effusion. Thoracic Vessels: The aorta and pulmonary arteries demonstrate normal size. Mediastinum and Mine: No enlarged lymph nodes. Esophagus: No wall thickening. No hiatal hernia. ABDOMEN: Liver: Unremarkable. Gallbladder: Again noted are probable gallstones. No gallbladder wall thickening. Biliary ducts: Unremarkable. Pancreas: Unremarkable. Spleen: Unremarkable. Adrenal Glands: Unremarkable. Kidneys and Ureters: Unremarkable. Stomach and Bowel: Stomach, small bowel loops, and colon are unremarkable. Peritoneum: No abnormal intraperitoneal fluid. No free air. Ventral Wall: No hernia. Abdominal Nodes: No retroperitoneal or mesenteric adenopathy by size criteria. Vessels: Aorta and inferior vena cava are normal in size. PELVIS: Pelvic Organs: Unremarkable. Bladder: Unremarkable. Pelvic Nodes: No enlarged lymph nodes. Miscellaneous: No inguinal hernias are seen. Bones: Unremarkable. IMPRESSION: 1. Currently, there is no pelvic mass. 2. No evidence of metastatic disease in the chest, abdomen, and pelvis. 3. Cholelithiasis. 4. No evidence of acute process in the chest, abdomen, and pelvis. Dictated by: Rancho Witt M.D. on 03/19/2022 at 15:54 Approved by: Rancho Witt M.D. on 03/19/2022 at 15:58
== END ==
PROVIDERS: PCP Family Medicine; Referring Provider Internal Medicine Medical Oncology; Visit Provider Internal Medicine Medical Oncology
DX: C56.1 Malignant neoplasm of right ovary (principal); K80.20 Calculus of gallbladder without cholecystitis without obstruction
CPT/HCPCS: 71260; 74177; Q9967

== ENCOUNTER → 2022-05-13 11:24 | Outpatient (CLI) | payer OTHER, MEDICAID, SELFPAY ==
[2022-05-13 13:04] LABS: Appearance Urine UA CLEAR; Bilirubin Urine UA NEGATIVE (NEGATIVE); Color Urine UA YELLOW; Glucose Urine UA NEGATIVE (Negative); Ketones Urine UA NEGATIVE (NEGATIVE); Leukocyte Esterase Urine UA TRACE (NEGATIVE); Nitrite Urine UA NEGATIVE (Negative); Occult Blood Urine UA 3+ (Negative); Protein Urine UA TRACE (Negative); Urobilinogen Urine UA 0.2 E.U./dL (0.2)
[2022-05-13 13:06] LABS: pH Urine UA 5.5 (4.5-8.0)
[2022-05-13 13:12] LABS: Bacteria Urine None Seen; Culture Indicated Urine Cult Not Indicated; Mucus Urine 1+ (Negative); RBC Urine 5-10/HPF (0-5/HPF); Squamous Epithelial Cell Urine 5-10 /HPF (0-5/HPF); WBC Urine 1-5/HPF (0-5/HPF)
[2022-05-13 13:17] LABS: HCG Quantitative /Beta subunit < 2.4 mIU/mL
[2022-05-16 20:43] LABS: Estrogen 145 pg/mL (.)
[2022-05-18 14:45] LABS: Inhibin B 20.8 pg/mL (.)
== END ==
PROVIDERS: PCP Family Medicine; Referring Provider Family Medicine; Visit Provider Family Medicine
DX: C56.1 Malignant neoplasm of right ovary (principal); R30.9 Painful micturition, unspecified; R10.9 Unspecified abdominal pain; R58 Hemorrhage, not elsewhere classified; E28.2 Polycystic ovarian syndrome; F43.10 Post-traumatic stress disorder, unspecified; F31.9 Bipolar disorder, unspecified; F41.1 Generalized anxiety disorder; F43.0 Acute stress reaction; F07.81 Postconcussional syndrome; G47.23 Circadian rhythm sleep disorder, irregular sleep wake type
CPT/HCPCS: 36415; 81001; 82672; 83520; 84702; Q3014

== ENCOUNTER 2022-10-03 20:02 | Emergency (ER) | payer OTHER, MEDICAID, SELFPAY ==
[2022-10-03 20:38] VITALS: BP 160/90; PULSE 89; RESP 20; TEMP 36.6; O2SAT 97; BMI 45.7
--- NOTE | 2022-10-04 02:36 | DI.RAD.S_ITS ---
PROCEDURE: XR ABDOMEN MIN 2V INDICATIONS: constipation TECHNIQUE: 2 views of the abdomen were acquired. COMPARISON: [facility], CT, CT CHEST ABD PEL W CON, 03/19/2022, 14:51. FINDINGS: Surgical changes and devices: None. Bowel: No pneumoperitoneum. The bowel gas pattern is normal. A mild amount of stool is seen within the colon. Soft tissues: No masses; visualized solid organ contours appear normal in size. No suspicious abdominal calcifications. Bones: No suspicious bony abnormalities. IMPRESSION: The volume of stool within the colon is not excessive. A nonobstructive bowel gas pattern is seen. If clinically appropriate, please consider a repeat plain film study or a dedicated CT of the abdomen and pelvis, if the patient's symptoms persist or worsen. Note: No significant discrepancy from the preliminary report. Dictated by: Travis Del Castillo M.D. on 10/04/2022 at 10:05 Approved by: Travis Del Castillo M.D. on 10/04/2022 at 10:06
--- NOTE | 2022-10-04 02:39 | ED_ITS ---
HPI - Abdominal Pain General Chief Complaint: Abdominal Pain Stated Complaint: ABD pain. Chronic GI issues. 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 She states she has been taking MiraLax multiple times a day she has done all of her meds nothing is working. She does get constipated frequently usually it works and does not walk 6 blocks. She denies any nausea vomiting. She has absolutely no fever or chills. She gets anxious about how long she has been constipated for which activate her POTS syndrome. She feels like she has chest pain palpitations. She also has had yeast infection she has been taking Diflucan but still feels like she has abnormal vaginal discharge. She has no history of STD. She has burning and vaginal pruritus. She currently denies any chest pain shortness of breath or other symptoms Related Data Home Medications Medication Instructions Recorded Confirmed buprenorphine 8 mg-naloxone 2 mg See Rx Instructions sublingual 04/14/22 07/31/22 sublingual tablet .COMPLEX Previous Rx's Medication Instructions Recorded lidocaine 5 % topical patch See Rx Instructions .Route 05/26/22 .COMPLEX #30 patches promethazine 12.5 mg rectal See Rx Instructions .Route 06/02/22 suppository (Promethegan) .COMPLEX #12 supp polyethylene glycol 3350 17 See Rx Instructions .Route 06/25/22 gram/dose oral powder .COMPLEX #119 grams triamcinolone acetonide 0.025 % See Rx Instructions .Route 06/29/22 topical cream .COMPLEX #454 grams promethazine 12.5 mg tablet See Rx Instructions .Route 07/07/22 .COMPLEX #42 tabs lamotrigine 100 mg tablet 100 mg PO DAILY #30 tabs 07/31/22 lamotrigine 25 mg tablet 25 mg PO DAILY #30 tabs 07/31/22 sennosides 8.6 mg tablet (senna) See Rx Instructions .Route 08/26/22 .COMPLEX PRN constipation #30 tabs tretinoin 0.05 % topical gel 1 applic topical BEDTIME #135 grams 08/26/22 nystatin 100,000 unit/gram topical See Rx Instructions .Route 09/03/22 ointment .COMPLEX PRN apply three times daily to affected area as needed #30 grams famotidine 40 mg tablet See Rx Instructions .Route 09/22/22 .COMPLEX #180 tabs fluconazole 150 mg tablet See Rx Instructions .Route 09/30/22 .COMPLEX #2 tabs fluconazole 200 mg tablet 200 mg PO DAILY PRN vaginal 10/04/22 (Diflucan) irritation #4 tabs lactulose 10 gram/15 mL oral 15 ml PO BID PRN constipation #473 10/04/22 solution mL metronidazole 500 mg tablet 500 mg PO BID 7 days #14 tabs 10/04/22 Allergies Allergy/AdvReac Type Severity Reaction Status Date / Time ketorolac [From Toradol] Allergy Intermediate Verified 07/31/22 13:46 aripiprazole [From ABILIFY] Allergy Mild MOOD SWINGS Verified 07/31/22 13:46 ethinyl estradiol Allergy Mild ITCHING Verified 07/31/22 13:46 [From NUVARING] etonogestrel [From NUVARING] Allergy Mild ITCHING Verified 07/31/22 13:46 hydrocodone [HYDROCODONE] Allergy Mild ITCHING Verified 07/31/22 13:46 tramadol [TRAMADOL] Allergy Mild ITCHING Verified 07/31/22 13:46 morphine AdvReac Intermediate Headache Verified 07/31/22 13:46 ondansetron AdvReac Intermediate Headache Verified 07/31/22 13:46 Review of Systems Review of Systems Narrative: GENERAL: Denies chills, fatigue, malaise, fever, sweats, travel HEENT: Denies sinus pain, ear pain, sore throat, difficulty swallowing, neck pain RESPIRATORY: Denies dyspnea, cough, wheezing, hemoptysis, sputum. CARDIOVASCULAR: Denies chest pain, palpitations, orthopnea, edema GASTROINTESTINAL: See HPI ASSOCIATE ART DIRECTOR: See HPI : Denies dysuria, frequency, incontinence, hematuria, urinary retention, flank pain. MUSCULOSKELETAL: Denies weakness, joint pain, or bony pain SKIN: No rash, no erythema, no pruritus NEUROLOGIC: Denies weakness, dizziness, headache, numbness, change in speech, confusion PSYCHIATRIC: No concerning psychosocial issues. 12 point review of systems is negative except for those stated above and HPI Patient History Medical History Bipolar 1 disorder Depression Distal paresthesia Ear infection History of multiple concussions Menometrorrhagia Migraines Obstructive sleep apnea (04/2022) Port-a-cath in place PTSD (post-traumatic stress disorder) Urinary leakage Surgical History History of wisdom tooth extraction Hx of tonsillectomy Hx of unilateral salpingectomy Social History household members: spouse Smoking Status: Current every day smoker Smoking Status: Current every day smoker tobacco type: vaping alcohol intake frequency: holidays/special occasions only Substance Use Type: does not use Exam Initial Vital Signs Initial Vital Signs: Vital Signs Temperature 97.9 F 10/03/22 20:38 Pulse Rate 89 10/03/22 20:38 Respiratory Rate 20 10/03/22 20:38 Blood Pressure 160/90 H 10/03/22 20:38 Pulse Oximetry 97 10/03/22 20:38 Oxygen Delivery Method 10/03/22 20:38 GENERAL: Alert very well-appearing 32-year-old female BMI 45 HEENT: Head atraumatic,EOMI, pupils reactive, face symmetric, moist mucous membranes CARDIOVASCULAR: Regular rate and rhythm without murmurs, rubs or gallops. RESPIRATORY: Breath sounds equal bilaterally, no wheezes rales or rhonchi. ABDOMEN: Soft, nontender. Normoactive bowel sounds all 4 quadrants. No guarding or rebound. PELVIC: External genitalia is normal, no vaginal bleeding, cervix is friable thick white discharge mild greenish : No CVA tenderness EXTREMITIES: Normal range of motion, no clubbing or edema. Neurovascularly intact NEUROLOGICAL: Alert and oriented x4.Normal gait and speech. SKIN: Warm, dry, no laceration, no petechiae, no rashes or lesions. Course Orders Ordered: ED Orders 10/04/22 02:36 XR abdomen min 2V Stat 10/04/22 03:40 Chlamydia/Gonoc/Myco Genital Stat Genital Culture Stat Wet Prep Tric BV Ashly Stat Vital Signs Vital signs: Vital Signs - 8 hr 10/03/22 20:38 Temperature 97.9 F Pulse Rate 89 Respiratory Rate 20 Blood Pressure 160/90 H Pulse Oximetry 97 Oxygen Delivery Method Room Air MDM - Abdominal Pain Lab Data Labs: [facility] CLIA ID [id number] [address] [place] [id number] RUN DATE: 10/04/22 Specimen Inquiry PAGE 1 RUN TIME: 513 Name: Tim Martinez Age/Sex: 32/F Attend Dr: [id number] [id number] : 1990Location: ED Re10/03/22 Disch: Status: DEP ER SPEC #: [id number] CRISTOFER: 10/04/22 STATUS: RES REQ #: [id number] SPDESC: RECD: 10/04/[address]: Latonia Joy D.O. SOURCE: Cervix ENTR: 10/04/[address]: Justa Hamilton MD FAX TO: ORDERED: Wet Prep, GENITAL Cx Procedure Result Verified Site Wet Prep Tric BV Ashly Final 10/04/22414 White blood cells Occasional WBC seen Clue cells: Occasional Yeast: None seen Trichomonas: None seen Gram Stain Preliminary 10/04/22414 White blood cells Occasional WBC seen Epithelial cells Moderate (10-30) Gram Positive Rods 4+ Genital Culture PENDING Point of care testing: Point of Care Testing Test Results Negative Urine Dip Bedside Urine Glucose Negative Bedside Urine Bilirubin - Negative Bedside Urine Ketone - Negative Urine Specific [place] 1.030 Bedside Urine Occult Blood - Negative Bedside Urine pH 6.0 Bedside Urine Protein - Negative Bedside Urine Urobilinogen - Negative Bedside Urine Nitrite - Negative Bedside Urine Leukocytes - Negative Esterase Imaging Data Abdominal x-ray: My Impression: Minimal constipation no air-fluid levels no sign of obstruction no free air Radiologist's Impression: Preliminary report bowel gas pattern is within normal limits, small amount of retained fecal material within the colon MDM Narrative Medical decision making narrative: Patient is a variety of complaints. She has ongoing constipation her about 15 days. No specific abdominal pain fever nausea vomiting. X-ray is negative but does show some stool. She has chronic ongoing constipation issue she has a GI specialist. She has remote history of cancer but has been cancer free for number of years her last scan was in March she recently saw her oncologist. At this time is we talked about further imaging however seems reasonable to give her something for her constipation if that does not work then she would need further imaging for cancer assessment. She has chronic issues of constipation. Also having chronic ongoing vaginal pruritus is upon exam hit appears to be vaginal candidiasis however wet mount is also sent. She says last time it took multiple doses of Diflucan before it went away. Urinalysis is negative. She is not septic vitals have been stable. She has not passed out or having any chest pain or POTS likes symptoms here at this time I see no need for any blood work or further evaluation. Wet mount is positive for clue cells Flagyl has also been prescribed. Discharge Plan Departure Patient Disposition: Home Clinical Impression: Constipation, Candidiasis of vagina, Bacterial vaginosis Instructions: Vaginal Yeast Infection, DI for Constipation Activity Restrictions/Additional Instructions: *You have been diagnosed with constipation in Yeast infection *What to do: If you are still constipated after lactulose I strongly recommend CT scan to look for any further cause. Your cultures are pending. Will go ahead and treat for yeast infection at this time. *Continue to take medications as directed --> SENT TO [facility] Lactulose 10 g 2 times a day as needed for constipation stop using once you have a bowel movement Diflucan 1 tablet every 4 days if needed *Follow up with your primary care provider in 2-3 days or call [phone] *Return to ER if you should have persistent constipation abdominal pain vomiting fever or any new, worsening or concerning symptoms Prescriptions: New fluconazole [Diflucan] 200 mg tablet 200 mg PO DAILY PRN (Reason: vaginal irritation) Qty: 4 0RF Rx Instructions: Take 1 dose may repeat is every 72 hours if still having symptoms lactulose 10 gram/15 mL solution 15 ml PO BID PRN (Reason: constipation) Qty: 473 0RF metronidazole 500 mg tablet 500 mg PO BID 7 Days Qty: 14 0RF No Action buprenorphine-naloxone 8-2 mg tablet, sublingual See Rx Instructions sublingual .COMPLEX Label Comments: PLACE 2 AND 1/2 TABLETS UNDER TONGUE DAILY ( 1 tab Qam , 1 tab QPM and 1/2 tab PRN during day) Rx Instructions: sublingual; lamotrigine 25 mg tablet 25 mg PO DAILY Qty: 30 2RF Rx Instructions: Take with 100mg tab daily for total dose 125mg daily lamotrigine 100 mg tablet 100 mg PO DAILY Qty: 30 2RF Rx Instructions: Take with 25mg tab for total dose 125mg daily lidocaine 5 % adhesive patch,medicated See Rx Instructions .ROUTE .COMPLEX Qty: 30 5RF Dose Instruction: APPLY TO MOST PAINFUL AREA DAILY 12 HOURS ON AND 12 HOURS OFF. Rx Instructions: APPLY TO MOST PAINFUL AREA DAILY 12 HOURS ON AND 12 HOURS OFF. promethazine [Promethegan] 12.5 mg suppository See Rx Instructions .ROUTE .COMPLEX Qty: 12 0RF Dose Instruction: UNWRAP AND INSERT 1 SUPPOSITORY RECTALLY 1 TIME NEEDED FOR NAUSEA OR VOMITING Rx Instructions: UNWRAP AND INSERT 1 SUPPOSITORY RECTALLY 1 TIME NEEDED FOR NAUSEA OR VOMITING polyethylene glycol 3350 17 gram/dose powder See Rx Instructions .ROUTE .COMPLEX Qty: 119 3RF Dose Instruction: 17 GIVE BY MOUTH DAILY NEEDED FOR CONSTIPATION. Rx Instructions: 17 GIVE BY MOUTH DAILY NEEDED FOR CONSTIPATION. triamcinolone acetonide 0.025 % cream See Rx Instructions .ROUTE .COMPLEX Qty: 454 1RF Dose Instruction: APPLY TOPICALLY TO THE AFFECTED AREA FOUR TIMES DAILY Rx Instructions: APPLY TOPICALLY TO THE AFFECTED AREA FOUR TIMES DAILY promethazine 12.5 mg tablet See Rx Instructions .ROUTE .COMPLEX Qty: 42 0RF Dose Instruction: TAKE 1 TABLET BY MOUTH EVERY 8 TO 12 HOURS FOR 14 DAYS NEEDED FOR NAUSEA Rx Instructions: TAKE 1 TABLET BY MOUTH EVERY 8 TO 12 HOURS FOR 14 DAYS NEEDED FOR NAUSEA tretinoin 0.05 % gel 1 applic topical BEDTIME Qty: 135 0RF sennosides [senna] 8.6 mg tablet See Rx Instructions .ROUTE .COMPLEX PRN (Reason: constipation) Qty: 30 0RF Dose Instruction: TAKE 1 TABLET BY MOUTH DAILY Rx Instructions: TAKE 1 TABLET BY MOUTH DAILY PRN; nystatin 100,000 unit/gram ointment See Rx Instructions .ROUTE .COMPLEX PRN (Reason: apply three times daily to affected area as needed) Qty: 30 0RF Dose Instruction: APPLY EXTERNALLY TO THE AFFECTED AREA THREE TIMES DAILY Rx Instructions: APPLY EXTERNALLY TO THE AFFECTED AREA THREE TIMES DAILY PRN; famotidine 40 mg tablet See Rx Instructions .ROUTE .COMPLEX Qty: 180 1RF Hold Instructions: med change due to insurance coverage Dose Instruction: TAKE 1 TABLET BY MOUTH TWICE DAILY Rx Instructions: TAKE 1 TABLET BY MOUTH TWICE DAILY fluconazole 150 mg tablet See Rx Instructions .ROUTE .COMPLEX Qty: 2 0RF Dose Instruction: TAKE 1 TABLET BY MOUTH EVERY 3 DAYS NEEDED FOR VAGINAL YEAST INFECTION. MAY REPEAT SECOND DOSE 72 HOURS AFTER FOR 1 DOSE IF SYMPTOMS PERSIST Rx Instructions: TAKE 1 TABLET BY MOUTH EVERY 3 DAYS NEEDED FOR VAGINAL YEAST INFECTION. MAY REPEAT SECOND DOSE 72 HOURS AFTER FOR 1 DOSE IF SYMPTOMS PERSIST Referrals: Justa Hamilton MD [Primary Care Provider] - Visit Report Forms: Patient Portal/API
[2022-10-07 04:51] LABS: Chlamydia trachomatis Negative (Negative); Mycoplasma genitalium Negative (Negative); Neisseria gonorrhoeae Negative (Negative)
== END 2022-10-04 04:11 | disposition home or self-care (01) ==
PROVIDERS: Emergency Provider Emergency Medicine; PCP Family Medicine
DX: K59.00 Constipation, unspecified (principal); B37.31 Acute candidiasis of vulva and vagina; N76.0 Acute vaginitis
CPT/HCPCS: 74019; 81003; 81025; 87070; 87205; 87210; 87491; 87563; 87591; 99282; 99283

== ENCOUNTER 2022-10-15 15:36 | Emergency (ER) | payer OTHER, MEDICAID, SELFPAY ==
[2022-10-15 16:15] VITALS: BP 126/85; PULSE 72; RESP 24; TEMP 36.7; O2SAT 97; BMI 45.6
--- NOTE | 2022-10-15 16:20 | DI.RAD.S_ITS ---
PROCEDURE: XR FINGER RT MIN 2V INDICATIONS: trauma TECHNIQUE: AP hand, 2 views of the 5th digit acquired. COMPARISON: None. FINDINGS: Bones: Possible/equivocal acute minimally displaced oblique fracture of the base of the 5th digit distal phalanx. Soft tissues: No suspicious soft tissue calcifications. IMPRESSION: Possible acute minimally displaced fracture of the 5th digit distal phalanx. If clinically indicated, follow-up radiographs and/or CT or MRI may be helpful for further evaluation. Dictated by: Dexter Main M.D. on 10/15/2022 at 16:58 Approved by: Dexter Main M.D. on 10/15/2022 at 17:02
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
[2022-10-15] MEDS: IBUPROFEN 400 MG TABLET 800 MG PO (18:24)
[2022-10-15] MEDS: ACETAMINOPHEN 325 MG TABLET 650 MG PO (18:24)
[2022-10-15] MEDS: OXYCODONE/ACETAMINOPHEN 5/325 TABLET 1 TAB PO (18:24)
== END 2022-10-15 18:37 | disposition home or self-care (01) ==
PROVIDERS: Emergency Provider Nurse Practitioner Critical Care Medicine; PCP Family Medicine
DX: S62.636A Displaced fracture of distal phalanx of right little finger, initial encounter for closed fracture (principal); W18.30XA Fall on same level, unspecified, initial encounter
CPT/HCPCS: 29130; 73140; 99283

== ENCOUNTER → 2023-07-19 16:15 | Outpatient (CLI) | payer MEDICARE, MEDICAID, SELFPAY ==
[2023-07-19 17:12] LABS: Alanine Aminotransferase 22 IU/L (<35); Albumin 4.6 g/dL (3.5-5.0); Albumin Globulin Ratio 1.3 (1.0-2.8); Alkaline Phosphatase 65 U/L (38-126); Aspartate Aminotransferase 26 IU/L (14-36); BUN Creatinine Ratio 14.1 (6-22); Bilirubin Total 0.2 mg/dL (0.2-1.3); Blood Urea Nitrogen 9 mg/dL (7-17); Calcium 9.2 mg/dL (8.4-10.2); Carbon Dioxide 28 mmol/L (22-32); Chloride 99 mmol/L (98-107); Estimated Glomerular Filt Rate > 60 mL/min (>60); Globulin 3.5 g/dL (1.7-4.1); Glucose 72 mg/dL (70-100); HEMOLYSIS < 15 (0-50); Sodium 138 mmol/L (137-145); Total Protein 8.1 g/dL (6.3-8.2)
[2023-07-21 12:01] LABS: Lamotrigine Lamictal 4.1 ug/mL (2.0-20.0)
[2023-07-21 16:26] LABS: Candida species Negative (Negative); Gardnerella vaginalis Negative (Negative); Trichomoas vaginalis Negative (Negative)
== END ==
PROVIDERS: Psychiatry & Neurology Psychiatry; PCP Family Medicine; Referring Provider Obstetrics & Gynecology; Visit Provider Obstetrics & Gynecology
DX: C56.1 Malignant neoplasm of right ovary (principal); F31.9 Bipolar disorder, unspecified; N89.8 Other specified noninflammatory disorders of vagina; N94.9 Unspecified condition associated with female genital organs and menstrual cycle; Z79.899 Other long term (current) drug therapy
CPT/HCPCS: 36415; 80053; 80175; 83520; 87480; 87510; 87660

== ENCOUNTER → 2023-08-07 13:26 | Outpatient (CLI) | payer MEDICARE, MEDICAID, SELFPAY ==
--- NOTE | 2023-08-07 13:27 | DI.CT.S_ITS ---
PROCEDURE: CT ABDOMEN PELVIS W CON INDICATIONS: Hx Ovarian cancer, increased inhibin b labs, pelvic pain TECHNIQUE: After the administration of oral and intravenous contrast, axial sections were acquired from the lung bases to the pubic symphysis. Coronal and sagittal reformats were performed. For radiation dose reduction, the following was used: automated exposure control, adjustment of mA and/or kV according to patient size. COMPARISON:[facility], CT, CT CHEST ABD PEL W CON, 03/19/2022, 14:51. [facility], CT, CT ABDOMEN PELVIS W CON, 03/16/2018, 14:05. FINDINGS: Image quality: Excellent. Lung bases: Unremarkable. Heart: No significant findings. ABDOMEN: Liver: Unremarkable. Gallbladder: Probable gallstones. No gallbladder wall thickening or pericholecystic fluid. Biliary ducts: Unremarkable. Pancreas: Unremarkable. Spleen: Unremarkable. Adrenal Glands: Unremarkable. Kidneys and Ureters: Unremarkable. Stomach and Bowel: Stomach, small bowel loops, and colon are unremarkable. Peritoneum: No abnormal intraperitoneal fluid. No free air. Ventral Wall: No hernia. Abdominal Nodes: No retroperitoneal or mesenteric adenopathy by size criteria. Vessels: Aorta and inferior vena cava are normal in size. PELVIS: Pelvic Organs: Status post right oophorectomy. Posterior to the uterus, slightly to the left is a 2.8 x 2.3 x 2.3 cm soft tissue attenuation lesion. Bladder: Unremarkable. Pelvic Nodes: No enlarged lymph nodes. Miscellaneous: No inguinal hernias are seen. Bones: Unremarkable. IMPRESSION: 1. Posterior to the uterus and slightly to the left is a soft tissue attenuation lesion measuring up to 2.8 cm. Recurrence or metastatic disease cannot be excluded. 2. Cholelithiasis without evidence of acute cholecystitis. Dictated by: Mata Cullen M.D. on 08/07/2023 at 15:42 Approved by: Mata Cullen M.D. on 08/07/2023 at 15:49
== END ==
PROVIDERS: PCP Family Medicine; Referring Provider Obstetrics & Gynecology; Visit Provider Obstetrics & Gynecology
DX: C56.1 Malignant neoplasm of right ovary (principal); N85.9 Noninflammatory disorder of uterus, unspecified; R10.2 Pelvic and perineal pain; R79.89 Other specified abnormal findings of blood chemistry; K80.20 Calculus of gallbladder without cholecystitis without obstruction; Z90.721 Acquired absence of ovaries, unilateral
CPT/HCPCS: 74177; Q9967

== ENCOUNTER → 2023-08-24 13:46 | Outpatient (CLI) | payer MEDICARE, MEDICAID, SELFPAY ==
[2023-08-26 14:40] LABS: Candida species Negative (Negative); Gardnerella vaginalis Negative (Negative); Trichomoas vaginalis Negative (Negative)
== END ==
PROVIDERS: PCP Family Medicine; Visit Provider Obstetrics & Gynecology
DX: R39.89 Other symptoms and signs involving the genitourinary system (principal); N89.8 Other specified noninflammatory disorders of vagina
CPT/HCPCS: 87480; 87510; 87660

== ENCOUNTER → 2024-01-26 15:23 | Outpatient (CLI) | payer MEDICARE, MEDICAID, SELFPAY ==
[2024-01-26 17:24] LABS: Add Manual Diff / Slide Review NO; Basophils Absolute Auto 0 /uL (0-100); Basophils Percent Auto 0.5 % (0-2); Eosinophils Absolute Auto 100 /uL (0-450); Eosinophils Percent Auto 1.7 % (2-4); Hematocrit 33.7 % (36-46); Lymphocytes Absolute Auto 3800 /uL (1100-4500); Lymphocytes Percent Auto 46.2 % (25-40); Mean Corpuscular HGB Conc 32.5 % (30-36); Mean Corpuscular Volume 73.9 fL (80-100); Monocytes Absolute Auto 600 /uL (0-900); Monocytes Percent Auto 7.1 % (3-14); Neutrophils Absolute Auto 3600 /uL (1500-7000); Neutrophils Percent Auto 44.5 % (50-75); Platelet Count 376 X10^3/uL (150-400); Red Blood Cell Count 4.56 X10^6/uL (4.0-5.2); Red Cell Distribution Width 16.4 % (11.6-14.8); White Blood Cell Count 8.1 X10^3/uL (4.5-11.0)
[2024-01-26 17:46] LABS: Hemoglobin A1C% w Est Avg Glu 5.5 % (4.0-6.0)
[2024-01-26 18:35] LABS: Vitamin B12 450 pg/mL (239-931)
== END ==
PROVIDERS: PCP Family Medicine; Visit Provider Family Medicine
DX: N76.0 Acute vaginitis (principal); G62.9 Polyneuropathy, unspecified
CPT/HCPCS: 36415; 82607; 83036; 85025; 87070; 87205; 87210

== ENCOUNTER → 2024-02-15 12:45 | Outpatient (CLI) | payer MEDICARE, MEDICAID, SELFPAY ==
--- NOTE | 2024-02-15 12:46 | DI.MG.S_ITS ---
BILATERAL DIGITAL DIAGNOSTIC MAMMOGRAM 3D/2D: 02/15/2024 No prior exams were available for comparison. There are scattered areas of fibroglandular density in both breasts (category b / 25%-50% glandular tissue). There is a 1.5 cm irregular equal density focal asymmetry containing a round focus of rim calcifications in the right breast at 8 o'clock middle depth. This is seen in additional views. This correlates as palpated and to area of tenderness. No other significant masses, calcifications, or other findings are seen in either breast. Left breast mammogram is normal. IMPRESSION: INCOMPLETE: NEEDS ADDITIONAL IMAGING EVALUATION A 1.5 cm focal asymmetry in the right breast corresponds to the palpable abnormality and is indeterminate. An ultrasound is recommended. This was performed immediately following this exam. Based on the Tyrer Cuzick model (a risk assessment model) the patient's lifetime risk is 9.8% and her 10 year risk is 0.5%. According to the ACR, ACS, and NCCN guidelines, an annual breast MRI exam along with mammogram is recommended if the patient's lifetime risk is 20% or greater. This exam was interpreted at Station ID: [id number]. NOTE: For mammograms, a report in lay terms will be sent to the patient. Approximately 15% of breast malignancies will not be visualized mammographically. In the management of a palpable breast mass, a negative mammogram must not discourage biopsy of a clinically suspicious lesion. Electronically Signed By: Cassandra badillo/:02/15/2024 15:55:53 ACR BI-RADS Category 0: Incomplete 3340F
--- NOTE | 2024-02-15 12:46 | DI.US.S_ITS ---
ULTRASOUND OF RIGHT BREAST AND AXILLA: 02/15/2024 CLINICAL: Palpable right breast lump and focal tenderness. No prior exams were available for comparison. Color flow ultrasound of the right breast axilla was performed. Flores scale images of the real-time examination were reviewed. There is a 1.5 cm x 1.1 cm x 1 cm oval partially solid mass which is predominantly hyperechoic, isoechoic to adjacent fat, and has a couple central cystic components, one with peripheral calcifications as seen on mammogram. This corresponds to the 8:00 palpable abnormality as well as the mammogram finding. Overall, this area has an indistinct margin and has some posterior acoustic shadowing. Color flow imaging demonstrates that there is trace vascularity present. No significant abnormalities were seen sonographically in the right axilla. IMPRESSION: PROBABLY BENIGN The 1.5 cm x 1.1 cm x 1 cm oval hyperechoic mass in the right breast corresponds to the palpable abnormality, has a differential diagnosis of fat necrosis, and/ or mastitis, less likely inclusion cyst or granuloma, and is probably benign. The patient is instructed to follow up with the clinician for a trial course of antibiotics for mastitis, and short interval follow up to include right mammogram and an ultrasound in 2 months (6 to 8 weeks) is recommended. Findings and recommendations were conveyed to the patient at time of exam. This exam was interpreted at Station ID: [id number]. Electronically Signed By: Cassandra badillo/:02/15/2024 16:07:11 letter sent: Followup Recommended Ultrasound BI-RADS: 3 Probably benign
== END ==
PROVIDERS: PCP Family Medicine; Referring Provider Family Medicine; Visit Provider Family Medicine
DX: R92.8 Other abnormal and inconclusive findings on diagnostic imaging of breast (principal); N63.13 Unspecified lump in the right breast, lower outer quadrant; R92.323 Mammographic fibroglandular density, bilateral breasts
CPT/HCPCS: 76642; 77066; G0279

== ENCOUNTER → 2024-07-04 13:38 | Outpatient (CLI) | payer MEDICARE, MEDICAID, SELFPAY ==
--- NOTE | 2024-07-04 13:41 | DI.MG.S_ITS ---
UNILATERAL RIGHT DIGITAL DIAGNOSTIC MAMMOGRAM 3D/2D SHORT-TERM FOLLOW-UP: 07/04/2024 CLINICAL: Short term follow of the Right breast. Comparison is made to exams dated: 02/15/2024 mammogram and 02/15/2024 ultrasound - [facility]. There are scattered areas of fibroglandular density in the right breast (category b / 25%-50% glandular tissue). There is a focal asymmetry with rim calcifications in the right breast at 8 o'clock middle depth. This is less prominent and correlates as palpated. No other significant masses or calcifications are seen in the breast. IMPRESSION: INCOMPLETE: NEEDS ADDITIONAL IMAGING EVALUATION The focal asymmetry in the right breast resembles an oil cyst and is indeterminate. A targeted ultrasound is recommended and will immediately follow. Based on the Tyrer Cuzick model (a risk assessment model) the patient's lifetime risk is 9.8% and her 10 year risk is 0.5%. According to the ACR, ACS, and NCCN guidelines, an annual breast MRI exam along with mammogram is recommended if the patient's lifetime risk is 20% or greater. This exam was interpreted at Station ID: [id number]. NOTE: For mammograms, a report in lay terms will be sent to the patient. Approximately 15% of breast malignancies will not be visualized mammographically. In the management of a palpable breast mass, a negative mammogram must not discourage biopsy of a clinically suspicious lesion. Electronically Signed By: David Wade M.D. slc/:07/04/2024 14:13:54 ACR BI-RADS Category 0: Incomplete 3340F
--- NOTE | 2024-07-04 13:41 | DI.US.S_ITS ---
LIMITED ULTRASOUND OF RIGHT BREAST: 07/04/2024 CLINICAL: Patient returns today to evaluate a focal asymmetry in the right breast. Comparison is made to exams dated: 07/04/2024 mammogram, 02/15/2024 mammogram, and 02/15/2024 [facility]. Color flow and real-time ultrasound of the right breast 8 o'clock region were performed. Flores scale images of the real-time examination were reviewed. There is a 1.1 cm x 0.9 cm x 0.6 cm oval cyst in the right breast at 8 o'clock middle depth 7 cm from the nipple. This oval cyst is hypoechoic with posterior acoustic shadowing. This abnormality is decreased in size and correlates as palpated and with mammography findings. Color flow imaging demonstrates that there is an adjacent vascularity. IMPRESSION: PROBABLY BENIGN The 1.1 cm cyst in the right breast most likely is an oil cyst and is probably benign. A follow-up mammogram and an ultrasound in 6 months is recommended to demonstrate stability. Exam findings were conveyed to the patient. Patient is advised to monitor for significant change. This exam was interpreted at Station ID: [id number]. Electronically Signed By: David Wade M.D. slc/:07/04/2024 14:48:02 letter sent: Followup Recommended Ultrasound BI-RADS: 3 Probably benign
== END ==
PROVIDERS: PCP Family Medicine; Referring Provider Family Medicine; Visit Provider Family Medicine
DX: N61.0 Mastitis without abscess (principal); R92.8 Other abnormal and inconclusive findings on diagnostic imaging of breast; N60.01 Solitary cyst of right breast; R92.321 Mammographic fibroglandular density, right breast
CPT/HCPCS: 76642; 77065; G0279

== ENCOUNTER → 2024-07-28 10:47 | Outpatient (CLI) | payer MEDICARE, MEDICAID, SELFPAY ==
[2024-07-29 11:36] LABS: Candida species Negative (Negative); Gardnerella vaginalis Negative (Negative); Trichomoas vaginalis Negative (Negative)
== END ==
PROVIDERS: PCP Family Medicine; Visit Provider Family Medicine
DX: B37.9 Candidiasis, unspecified (principal)
CPT/HCPCS: 87480; 87510; 87660

== ENCOUNTER → 2024-09-13 10:49 | Outpatient (CLI) | payer MEDICARE, MEDICAID, SELFPAY | PROVIDERS: PCP Family Medicine; Visit Provider Family Medicine | DX: N89.8 Other specified noninflammatory disorders of vagina (principal); R10.2 Pelvic and perineal pain; R39.15 Urgency of urination; K59.00 Constipation, unspecified; D49.59 Neoplasm of unspecified behavior of other genitourinary organ | CPT/HCPCS: 87480; 87491; 87510; 87563; 87591; 87660 ==

== ENCOUNTER → 2024-12-20 10:55 | Outpatient (CLI) | payer MEDICARE, MEDICAID, SELFPAY ==
[2024-12-20 11:56] LABS: Add Manual Diff / Slide Review NO; Basophils Absolute Auto 0 /uL (0-100); Basophils Percent Auto 0.4 % (0-2); Eosinophils Absolute Auto 100 /uL (0-450); Hematocrit 36.9 % (36-46); Lymphocytes Absolute Auto 2800 /uL (1100-4500); Lymphocytes Percent Auto 37.7 % (25-40); Mean Corpuscular HGB Conc 32.5 % (30-36); Mean Corpuscular Hemoglobin 26.7 PG (26-34); Mean Corpuscular Volume 82.2 fL (80-100); Monocytes Absolute Auto 500 /uL (0-900); Monocytes Percent Auto 6.4 % (3-14); Neutrophils Absolute Auto 3900 /uL (1500-7000); Neutrophils Percent Auto 53.5 % (50-75); Platelet Count 365 X10^3/uL (150-400); Red Blood Cell Count 4.49 X10^6/uL (4.0-5.2); Red Cell Distribution Width 14.9 % (11.6-14.8); White Blood Cell Count 7.3 X10^3/uL (4.5-11.0)
[2024-12-20 12:03] LABS: Cholesterol 173 mg/dL (140-199); HDL Cholesterol 47 mg/dL (40-60); LDL Cholesterol Calculated 97 mg/dL (<100); Triglycerides 147 mg/dL (35-150)
[2024-12-20 12:04] LABS: Hemoglobin A1C% w Est Avg Glu 5.2 % (4.0-6.0)
[2024-12-20 12:18] LABS: Iron 66 ug/dL (37-170)
[2024-12-20 12:37] LABS: Free T3, Triiodothyronine Free 4.01 pg/mL (2.77-5.27); Free T4, Direct Thyroxine 0.91 ng/dL (0.78-2.19)
[2024-12-20 12:40] LABS: Ferritin 7 ng/mL (6-137)
[2024-12-20 12:50] LABS: Thyroid Stimulating Hormone 1.05 uIU/mL (0.47-4.68)
== END ==
PROVIDERS: PCP Family Medicine; Referring Provider Family Medicine; Visit Provider Family Medicine
DX: E66.9 Obesity, unspecified (principal); L65.9 Nonscarring hair loss, unspecified
CPT/HCPCS: 36415; 80061; 82728; 83036; 83540; 84439; 84443; 84481; 85025